=== PATIENT | female | born 1955 | race Caucasian/White ===

== ENCOUNTER 2024-08-02 14:20 | Outpatient (OUT) | payer MEDICARE, SELFPAY ==
--- NOTE | 2024-08-02 | XR_ITS ---
The [address] [address] Patient Name: RUBA PARADA MRN: [id number] date: 1955 Sex: F Assigned Patient Location: [facility] Current Patient Location: Accession/Order Number: [id number] Exam Date: 08/02/2024 14:40 Report Date: 08/05/2024 07:37 At the request of: ORI MONTANEZ Procedure: XR hip RT 2V w/ pelvis PROCEDURE: XR hip RT 2V w/ pelvis COMPARISON: None. HISTORY: PAIN OF RIGHT HIP FINDINGS: BONES:No acute fracture or dislocation. Moderate bilateral hip osteoarthritis with marginal osteophyte formation and joint space narrowing. Degenerative changes SOFT TISSUES:Negative. No visible soft tissue swelling. EFFUSION:None visible. OTHER: Vascular calcifications XR/XR hip RT 2V w/ pelvis IMPRESSION: Moderate to severe bilateral hip osteoarthritis Electronically authenticated by: SIMON TEJEDA Date: 08/05/2024 07:37
== END 2024-08-02 14:21 | disposition home or self-care (01) ==
LOC: RAD 14:26
PROVIDERS: PCP Nurse Practitioner Family; Visit Provider Nurse Practitioner Family
DX: M25.551 Pain in right hip (principal); Z91.81 History of falling; M16.0 Bilateral primary osteoarthritis of hip
CPT/HCPCS: 73502

== ENCOUNTER 2024-09-07 07:15 | Inpatient (IN) | payer MEDICARE, SELFPAY ==
[2024-09-07] VITALS (56 sets, daily range): BP systolic 128–177; BP diastolic 70–98; PULSE 50–82; TEMP 34.5–36.3; O2SAT 81–100; BMI 33.3; BMI 31.8
--- NOTE | 2024-09-07 07:19 | ECG_ITS ---
The [facility] Test Date: 2024-09-07 Pat Name: RUBA PARADA Department: Room: - Gender: Female Dock Hand: : 1955 Requested By: Sophie Omer Order Number: [id number] Reading MD: TUSHAR AYALA Measurements Intervals Isabella Rate: 51 P: 97 MI: 234 QRS: 17 QRSD: 108 T: 54 QT: 602 QTc: 577 Interpretive Statements 1100 Sinus rhythm with first degree AV block with occasional ventricular premature complexes (Unreliable analysis due to noise) 3413 Cannot rule out septal myocardial infarction, probably old 0102 ARTIFACT PRESENT 9150 abnormal ECG No previous ECG available for comparison Electronically Signed On 09-09-2024 17:49:09 EST by TUSHAR AYALA
--- NOTE | 2024-09-07 07:28 | ED_ITS ---
HPI HPI - General Adult General Chief complaint: Nausea/Vomiting/Diarrhea Stated complaint: CHEST PAIN, DIARRHEA Time Seen by Provider: 09/07/24 07:17 Source: patient Mode of arrival: ambulance History of Present Illness HPI narrative: Patient presents to ED for evaluation of chest pain and abdominal pain. Patient presented via EMS. She states that she had chest pain that woke her up this morning out of sleep. She said her chest pain is central and does radiate into her back a little bit. She is also has nausea vomiting and diarrhea. She said the diarrhea has been there at the past couple of days but the vomiting just started this morning. She has shaking chills and states that she just has not been feeling well. Patient states she is on medication but does not know which medication. She states she has not been here before. She states she lives at home with her 2 daughters. She has surgical scars on her abdomen and said it is from a tummy tuck although it looks like she has had other surgeries other than that. She was covered in stool when she arrived and she said she has been incontinent with diarrhea for the past couple of days. History is very limited because she is not answering very many questions and is also unsure of a lot of her own history. Related Data Home Medications ?Medication ?Instructions ?Recorded ?Confirmed albuterol sulfate 90 mcg/actuation 2 puff inhalation Q6H PRN 09/07/24 09/07/24 aerosol inhaler shortness of breath or wheezing amlodipine 5 mg tablet 5 mg PO DAILY 09/07/24 09/07/24 atorvastatin 40 mg tablet 40 mg PO DAILY 09/07/24 09/07/24 bupropion HCl 150 mg 24 hr tablet, 150 mg PO DAILY 09/07/24 09/07/24 extended release escitalopram oxalate 20 mg tablet 20 mg PO DAILY 09/07/24 09/07/24 fluticasone propionate 50 1 spray intranasal BID 09/07/24 09/07/24 mcg/actuation nasal spray,suspension hydrochlorothiazide 25 mg tablet 25 mg PO DAILY 09/07/24 09/07/24 metoprolol succinate 25 mg 25 mg PO DAILY 09/07/24 09/07/24 tablet,extended release 24 hr solifenacin 5 mg tablet 5 mg PO DAILY 09/07/24 09/07/24 Allergies Allergy/AdvReac Type Severity Reaction Status Date / Time No Known Drug Allergies Allergy Verified 09/07/24 07:20 Opioid HPI Opioid Management Most Recent Opioid Data: Last MAR Pain Assessment 09/07/24 08:32 Review of Systems ROS Status of ROS 10 or more systems reviewed and unremark able except as noted in history and [facility] History (Updated 09/07/24 @ 10:46 by Brittney Rashid DO) Vertigo ?R42 - Dizziness and giddiness (ICD-10) Sleep apnea ?G47.30 - Sleep apnea, unspecified (ICD-10) COPD (chronic obstructive pulmonary disease) ?J44.9 - Chronic obstructive pulmonary disease, unspecified (ICD-10) Surgical History (Updated 09/07/24 @ 09:56 by Elise Flowers) History of hysterectomy ?Z90.710 - Acquired absence of both cervix and uterus (ICD-10) History of abdominoplasty ?Z98.890 - Other specified postprocedural states (ICD-10) History of oral surgery ?Z98.890 - Other specified postprocedural states (ICD-10) Exam Narrative Exam Narrative: Time Seen: [] Vital Signs: [Per nurse's notes.] General: [Alert] shaking chills Skin: [Warm, dry, no rash.] Head: [Normocephalic, atraumatic.] Neck: [Supple, trachea midline.] Eye: [Pupils are equal, round and reactive to light, extraocular movements are intact, normal conjunctiva.] Ears, nose, mouth and throat: oral mucosa moist. Cardiovascular: Bradycardia no murmur.] Respiratory: [Lungs are clear to auscultation, breath sounds are equal.] Chest wall: [No tenderness, no deformity.] Gastrointestinal: [Soft, mild epigastric tenderness, non distended, normal bowel sounds.] MSK: 5 out of 5 muscle strength x 4 extremities no calf pain or edema Psychiatric: [Cooperative, appropriate mood & affect.] Anxious Neurological: [Alert and oriented to person, place, time, and situation, no focal neurological deficit observed.] Constitutional Vital Signs, click to edit/add: Last Vital Signs Temp 95.8 F L 09/07/24 10:17 Pulse 67 09/07/24 07:17 Resp 22 H 09/07/24 07:17 BP 136/70 09/07/24 09:53 Pulse Ox 100 09/07/24 07:17 O2 Del Method Room Air 09/07/24 07:17 Course Vital Signs Vital signs: Vital Signs Pulse Rate 67 09/07/24 07:17 Respiratory Rate 22 H 09/07/24 07:17 Pulse Oximetry 100 09/07/24 07:17 Oxygen Delivery Method Room Air 09/07/24 07:17 Temperature 95.8 F L 09/07/24 10:17 Pulse Rate 67 09/07/24 07:17 Respiratory Rate 22 H 09/07/24 07:17 Blood Pressure 136/70 09/07/24 09:53 Pulse Oximetry 100 09/07/24 07:17 Oxygen Delivery Method Room Air 09/07/24 07:17 Medical Decision Making MDM Narrative Medical decision making narrative: Patient's labs show elevated white blood cell count and elevated hemoglobin. She also has other temperature of 94 on arrival. She was placed on the bear hugger and her temperature is slowly improving. She is up to 95.8. Patient's been tachypneic and her ABG shows an alkalosis with a pH of 7.62. Patient did complain of chest pain but her troponin is negative x 1. CT angio chest abdomen pelvis does not show any evidence of PE or dissection or major obvious infection. Patient has had a lot of vomiting and diarrhea therefore this could be dehydration and gastroenteritis infection. At this time it is unclear exactly the source of infection or cause of her lab abnormalities and hypothermia. Dr. Sharif was contacted and will admit the patient to ICU for further monitoring and care. Patient and family were updated on care plan. Patient comfortable with admission. Differential Diagnosis Differential Diagnosis: Gastroenteritis, ACS, electrolyte abnormality, sepsis Lab Data Lab results reviewed: Yes I reviewed the patient's lab results Labs: Lab Results 09/07/24 09/07/24 09/07/24 Range/Units 08:00 08:13 08:39 WBC 16.4 H (4.0-11.0) 10^3/uL RBC 5.14 (4.20-5.40) 10^6/uL Hgb 16.3 H (12.0-16.0) g/dL Hct 46.4 (36.0-48.0) % MCV 90.3 (81.0-99.0) fL MCH 31.7 (26.7-34.0) pg MCHC 35.1 (29.9-35.2) g/dL RDW 12.2 (11.0-15.0) % Plt Count 260 (150-450) 10^3/uL MPV 10.1 (9.5-13.5) fL Neut % (Auto) 84.0 H (43.0-75.0) % Lymph % (Auto) 9.4 L (20.5-60.0) % Stearns % (Auto) 5.5 (1.7-12.0) % Eos % (Auto) 0.1 L (0.9-7.0) % Baso % (Auto) 0.4 (0.2-2.0) % Neut # (Auto) 13.8 H (1.4-6.5) 10^3/uL Lymph # (Auto) 1.5 (1.2-3.8) 10^3/uL Stearns # (Auto) 0.9 H (0.3-0.8) 10^3/uL Eos # (Auto) 0.0 (0.0-0.7) 10^3/uL Baso # (Auto) 0.1 (0.0-0.1) 10^3/uL Abs Immat Gran (auto) 0.10 H (0.00-0.03) 10^3/uL Imm/Tot Granulo (auto) 0.6 H (0.0-0.5) % PT 10.3 (9.0-11.6) sec INR 0.97 Puncture Site ABG pH (7.350-7.450) ABG pCO2 (35.0-45.0) mmHg ABG pO2 (80.0-100.0) mmHg ABG HCO3 (22.0-26.0) mmol/L ABG O2 Saturation % ABG Base Excess (-2.0-2.0) mmol/L Christopher Test (POSITIVE) Sodium 139 (136-145) mmol/L Potassium 3.7 (3.5-5.1) mmol/L Chloride 102 (98-107) mmol/L Carbon Dioxide 23.8 (21.0-32.0) mmol/L Anion Gap 16.9 BUN 27.0 H (7.0-18.0) mg/dL Creatinine 0.98 (0.55-1.02) mg/dL Est GFR ( Amer) >60 (>=60 mL/min/1.73m^2) Est GFR (Non-Af Amer) 56 L (>=60 mL/min/1.73m^2) BUN/Creatinine Ratio 27.6 Glucose 181 H (74-106) mg/dL Calcium 9.3 (8.5-10.1) mg/dL Total Bilirubin 1.2 H (0.2-1.0) mg/dL AST 25 (15-37) U/L ALT 31 (14-59) U/L Alkaline Phosphatase 66 (46-116) U/L Troponin I High Sens 5.8 (4.0-51.3) pg/mL Total Protein 7.3 (6.4-8.2) g/dL Albumin 4.0 (3.4-5.0) g/dL Globulin 3.3 g/dL Albumin/Globulin Ratio 1.2 / Range/Units 08:40 WBC (4.0-11.0) 10^3/uL RBC (4.20-5.40) 10^6/uL Hgb (12.0-16.0) g/dL Hct (36.0-48.0) % MCV (81.0-99.0) fL MCH (26.7-34.0) pg MCHC (29.9-35.2) g/dL RDW (11.0-15.0) % Plt Count (150-450) 10^3/uL MPV (9.5-13.5) fL Neut % (Auto) (43.0-75.0) % Lymph % (Auto) (20.5-60.0) % Stearns % (Auto) (1.7-12.0) % Eos % (Auto) (0.9-7.0) % Baso % (Auto) (0.2-2.0) % Neut # (Auto) (1.4-6.5) 10^3/uL Lymph # (Auto) (1.2-3.8) 10^3/uL Stearns # (Auto) (0.3-0.8) 10^3/uL Eos # (Auto) (0.0-0.7) 10^3/uL Baso # (Auto) (0.0-0.1) 10^3/uL Abs Immat Gran (auto) (0.00-0.03) 10^3/uL Imm/Tot Granulo (auto) (0.0-0.5) % PT (9.0-11.6) sec INR Puncture Site Right radial ABG pH 7.623 H* (7.350-7.450) ABG pCO2 16.4 L (35.0-45.0) mmHg ABG pO2 117.0 H (80.0-100.0) mmHg ABG HCO3 17.0 L (22.0-26.0) mmol/L ABG O2 Saturation 98.4 % ABG Base Excess -4.2 L (-2.0-2.0) mmol/L Christopher Test Positive (POSITIVE) Sodium (136-145) mmol/L Potassium (3.5-5.1) mmol/L Chloride (98-107) mmol/L Carbon Dioxide (21.0-32.0) mmol/L Anion Gap BUN (7.0-18.0) mg/dL Creatinine (0.55-1.02) mg/dL Est GFR ( Amer) (>=60 mL/min/1.73m^2) Est GFR (Non-Af Amer) (>=60 mL/min/1.73m^2) BUN/Creatinine Ratio Glucose (74-106) mg/dL Calcium (8.5-10.1) mg/dL Total Bilirubin (0.2-1.0) mg/dL AST (15-37) U/L ALT (14-59) U/L Alkaline Phosphatase (46-116) U/L Troponin I High Sens (4.0-51.3) pg/mL Total Protein (6.4-8.2) g/dL Albumin (3.4-5.0) g/dL Globulin g/dL Albumin/Globulin Ratio Imaging Data CT scan - abdomen: Radiologist's impression: ITS Impressions Abdomen/Pelvis CTA 09/07/24 07:32 IMPRESSION: No central pulmonary thromboembolic disease No aortic aneurysm or dissection 8 mm indeterminate lesion right renal cortex Electronically authenticated by: SIMON TEJEDA Date: 09/07/2024 10:15 Chest CTA 09/07/24 07:32 IMPRESSION: No central pulmonary thromboembolic disease No aortic aneurysm or dissection 8 mm indeterminate lesion right renal cortex Electronically authenticated by: SIMON TEJEDA Date: 09/07/2024 10:[address] 09/07/24 08:30 IMPRESSION: 1. No acute intracranial abnormality. No acute intracranial infarct visualized by this modality. (MRI is more sensitive). No acute intracranial hemorrhage 2. Periventricular white matter hypodensity, likely chronic white matter ischemic disease. Electronically authenticated by: TERESA PETERSEN Date: 09/07/2024 09:57 ECG Data Attestation: I personally reviewed and interpreted this ECG as follows: Interpretation: EKG INTERPRETATION Time: [] Rate: [] 51 Rhythm: _ [] Bradycardia ST segments: _ [] T waves: _ [] Ectopy: _ [] P wave/KS interval: _ [] QRS interval: _ [] QT interval: _ [] Comparison: _ [] Comparison EKG date: [] Performed by: [self] no obvious acute ST elevation or depression however artifact is severe due to her shaking chills Discharge Plan Discharge Chief Complaint: Nausea/Vomiting/Diarrhea Clinical Impression: Gastroenteritis, Dehydration, Chest pain, Hypothermia, Alkalosis Patient Disposition: Admitted As Inpatient Time of Disposition Decision: 10:46 Condition: Serious Prescriptions / Home Meds: No Action atorvastatin 40 mg tablet 40 mg PO DAILY amlodipine 5 mg tablet 5 mg PO DAILY hydrochlorothiazide 25 mg tablet 25 mg PO DAILY metoprolol succinate 25 mg tablet extended release 24 hr 25 mg PO DAILY albuterol sulfate 90 mcg/actuation HFA aerosol inhaler 2 puff INHALATION Q6H PRN (Reason: shortness of breath or wheezing) escitalopram oxalate 20 mg tablet 20 mg PO DAILY bupropion HCl 150 mg tablet extended release 24 hr 150 mg PO DAILY solifenacin 5 mg tablet 5 mg PO DAILY fluticasone propionate 50 mcg/actuation spray,suspension 1 spray INTRANASAL BID Print Language: Portuguese Referrals: ORI MONTANEZ [Primary Care Provider] - 1 week
--- NOTE | 2024-09-07 07:32 | CT_ITS ---
[address] [address] Patient Name: RUBA PARADA MRN: [id number] date: 1955 Sex: F Assigned Patient Location: ER Current Patient Location: Accession/Order Number: [id number] Exam Date: 09/07/2024 09:20 Report Date: 09/07/2024 10:15 At the request of: MICAH MCCURDY Procedure: CT angio abdomen pelvis EXAMINATION: CT angio chest, CT angio abdomen pelvis HISTORY: CP back pain COMPARISON: No relevant comparison available. TECHNIQUE: After obtaining the patient's consent, CT images of the chest, abdomen and pelvis were obtained with non-ionic intravenous contrast material. Axial, Coronal, and Sagittal images. Multi-planar reformatted/3-D images were created to optimize visualization of vascular anatomy. Dose reduction techniques were achieved by using automated exposure control and/or adjustment of mA and/or kV according to patient size and/or use of iterative reconstruction technique. FINDINGS: VASCULATURE: Normal postcontrast opacification of the central pulmonary arterial tree with no filling defect to suggest a pulmonary embolus LUNGS: Scattered pulmonary nodules largest measuring 8 mm along the right major fissure possibly an intrafissural lymph node axial image 40. No focal parenchymal infiltrates PLEURA: No mass, effusion, or pneumothorax. JOHN: No mass or adenopathy. MEDIASTINUM: No mass or adenopathy. CARDIAC: Prominent heart size. No pericardial effusion Coronary arteries: Moderate calcifications CHEST WALL: Ruptured right saline breast implant. Intact left breast implants AORTA/VASCULAR: No aortic aneurysm or dissection. Moderate calcific atherosclerosis CELIAC ARTERY: No flow significant stenosis occlusion or aneurysm SMA: Moderate calcification at the origin with approximately 30% narrowing. No aneurysm or occlusion RENAL ARTERIES: Single right renal artery. Single left renal artery. 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 No occlusion or flow significant stenosis. Extensive calcific atherosclerosis LIVER: No enlargement, atrophy, abnormal density, or significant focal lesion. BILIARY: Surgical clips from cholecystectomy PANCREAS: No lesion, fluid collection, ductal dilatation, or atrophy. SPLEEN: No enlargement or focal lesion. ADRENALS: No mass or enlargement. KIDNEYS: 8 mm indeterminate soft tissue cortical lesion right mid pole kidney axial image 96. No hydronephrosis or obstructing nephrolithiasis BOWEL/MESENTERY: Small hiatal hernia. Mild colonic diverticulosis. Nonobstructive bowel gas pattern. Normal appendix RETROPERITONEUM: No mass or adenopathy. ABDOMINAL WALL: No mass or hernia. BONES: No bony lesion or fracture. Moderate diffuse degenerative changes with bilateral L5-S1 foraminal stenosis OTHER: Hysterectomy. Moderate fluid distention of the urinary bladder CT/CT angio abdomen pelvis IMPRESSION: No central pulmonary thromboembolic disease No aortic aneurysm or dissection 8 mm indeterminate lesion right renal cortex Electronically authenticated by: SIMON TEJEDA Date: 09/07/2024 10:15
--- NOTE | 2024-09-07 07:32 | CT_ITS ---
[address] [address] Patient Name: RUBA PARADA MRN: [id number] date: 1955 Sex: F Assigned Patient Location: ER Current Patient Location: Accession/Order Number: [id number] Exam Date: 09/07/2024 09:20 Report Date: 09/07/2024 10:15 At the request of: MICAH MCCURDY Procedure: CT angio chest EXAMINATION: CT angio chest, CT angio abdomen pelvis HISTORY: CP back pain COMPARISON: No relevant comparison available. TECHNIQUE: After obtaining the patient's consent, CT images of the chest, abdomen and pelvis were obtained with non-ionic intravenous contrast material. Axial, Coronal, and Sagittal images. Multi-planar reformatted/3-D images were created to optimize visualization of vascular anatomy. Dose reduction techniques were achieved by using automated exposure control and/or adjustment of mA and/or kV according to patient size and/or use of iterative reconstruction technique. FINDINGS: VASCULATURE: Normal postcontrast opacification of the central pulmonary arterial tree with no filling defect to suggest a pulmonary embolus LUNGS: Scattered pulmonary nodules largest measuring 8 mm along the right major fissure possibly an intrafissural lymph node axial image 40. No focal parenchymal infiltrates PLEURA: No mass, effusion, or pneumothorax. JOHN: No mass or adenopathy. MEDIASTINUM: No mass or adenopathy. CARDIAC: Prominent heart size. No pericardial effusion Coronary arteries: Moderate calcifications CHEST WALL: Ruptured right saline breast implant. Intact left breast implants AORTA/VASCULAR: No aortic aneurysm or dissection. Moderate calcific atherosclerosis CELIAC ARTERY: No flow significant stenosis occlusion or aneurysm SMA: Moderate calcification at the origin with approximately 30% narrowing. No aneurysm or occlusion RENAL ARTERIES: Single right renal artery. Single left renal artery. 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 No occlusion or flow significant stenosis. Extensive calcific atherosclerosis LIVER: No enlargement, atrophy, abnormal density, or significant focal lesion. BILIARY: Surgical clips from cholecystectomy PANCREAS: No lesion, fluid collection, ductal dilatation, or atrophy. SPLEEN: No enlargement or focal lesion. ADRENALS: No mass or enlargement. KIDNEYS: 8 mm indeterminate soft tissue cortical lesion right mid pole kidney axial image 96. No hydronephrosis or obstructing nephrolithiasis BOWEL/MESENTERY: Small hiatal hernia. Mild colonic diverticulosis. Nonobstructive bowel gas pattern. Normal appendix RETROPERITONEUM: No mass or adenopathy. ABDOMINAL WALL: No mass or hernia. BONES: No bony lesion or fracture. Moderate diffuse degenerative changes with bilateral L5-S1 foraminal stenosis OTHER: Hysterectomy. Moderate fluid distention of the urinary bladder CT/CT angio chest IMPRESSION: No central pulmonary thromboembolic disease No aortic aneurysm or dissection 8 mm indeterminate lesion right renal cortex Electronically authenticated by: SIMON TEJEDA Date: 09/07/2024 10:15
[2024-09-07] MEDS: ONDANSETRON PF 4 MG/2 ML VIAL IV ×2 (07:39→20:22)
[2024-09-07] MEDS: 0.9 % SODIUM CHLORIDE 1,000 ML 999 ML IV (07:39)
--- OUTSIDE RECORDS SUMMARY | 2024-09-07 07:49 | XMS_ITS | CCD ---
Author Organization [facility] FIELD [employer] [facility] Medications Current Medications Medication Drug Class(es) Dates Sig (Normalized) Sig (Original) Albuterol Sulfate 90 mcg/actuation HFA aerosol inhaler (1 source) Start: 07-25-20 take 1 puff(s) by inhalation four times daily Albuterol Sulfate 90 mcg/actuation HFA aerosol inhaler Active 2 PUFF INHALATION Four times daily 6.7 July 25, 2024 11:50am amLODIPine 5 mg oral tablet (2 sources) Dihydropyridine Calcium Channel Jamey Start: 07-25-20 End: 07-25-20 take 1 tablet by mouth once daily Amlodipine 5 mg tablet Active 5 MG PO Daily July 25, 2024 11:50am atorvastatin 40 mg oral tablet (2 sources) HMG-CoA Reductase Inhibitor Start: 07-25-20 End: 07-25-20 take 1 tablet by mouth once daily Atorvastatin 40 mg tablet Active 40 MG PO Daily July 25, 2024 11:51am 24 hr buPROPion hydrochloride 150 mg extended release oral tablet (2 sources) Aminoketone Start: 07-25-20 End: 07-25-20 take 1 tablet by mouth once daily in the morning Bupropion Hcl 150 mg tablet extended release 24 hr Active 150 MG PO Every morning July 25, 2024 11:51am escitalopram 20 mg oral tablet (2 sources) Serotonin Reuptake Inhibitor Start: 07-25-20 End: 07-25-20 take 1 tablet by mouth once daily Escitalopram Oxalate 20 mg tablet Active 20 MG PO Daily July 25, 2024 11:52am fluticasone propionate 0.05 mg/actuat metered dose nasal spray (1 source) Corticosteroid Start: 07-25-20 take 1 spray(s) nasal route twice daily Fluticasone Propionate (Flonase Allergy Relief) 50 mcg/actuation spray,suspension Active 1 SPRAY INTRANASAL Twice daily July 25, 2024 12:00am administer into each nostril hydroCHLOROthiazide 25 mg oral tablet (2 sources) Thiazide Diuretic Start: 07-25-20 End: 07-25-20 take 1 tablet by mouth once daily Hydrochlorothiazide 25 mg tablet Active 25 MG PO Daily July 25, 2024 11:52am methylPREDNISolone 4 mg oral tablet (1 source) Corticosteroid Start: 08-28-19 Methylprednisolone 4 mg tablet Active 4 MG PO as directed 1 August 28, 2024 12:00am 24 hr metoprolol succinate 25 mg extended release oral tablet (2 sources) beta-Adrenergic Jamey Start: 07-25-20 End: 07-25-20 take 1 tablet by mouth once daily Metoprolol Succinate 25 mg tablet extended release 24 hr Active 25 MG PO Daily July 25, 2024 11:54am solifenacin succinate 5 mg oral tablet (2 sources) Cholinergic Muscarinic Antagonist Start: 07-25-20 End: 07-25-20 take 1 tablet by mouth once daily Solifenacin 5 mg tablet Active 5 MG PO Daily July 25, 2024 11:53am Completed/Discontinued Medications Medication Drug Class(es) Dates Sig (Normalized) Sig (Original) [id number] 200 actuat albuterol 0.09 mg/actuat metered dose inhaler (1 source) beta2-Adrenergic Agonist Start: 07-25-2024 End: 07-25-2024 take 1 puff(s) by inhalation four times daily Albuterol Sulfate 90 mcg/actuation HFA aerosol inhaler Discontinued 2 PUFF INHALATION Four times daily July 25, 2024 12:00am July 25, 2024 11:55am Problems Problem Classification Problem Date Documented Da te Episodic/Chronic Chronic obstructive pulmonary disease and bronchiectasis (2 sources) Chronic obstructive lung disease; Translations: [Chronic obstructive pulmonary disease, unspecified] 07-25-2024 Chronic Disorders of lipid metabolism (2 sources) Hypercholesterolemia; Translations: [Pure hypercholesterolemia, unspecified] 07-25-2024 Chronic Essential hypertension (2 sources) Hypertensive disorder; Translations: [Essential (primary) hypertension] 07-25-2024 Chronic Mood disorders (2 sources) Depressive disorder; Translations: [Depression] 07-25-2024 Chronic Osteoarthritis (3 sources) Primary coxarthrosis, bilateral; 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] 08-27-2024 Chronic Other diseases of bladder and urethra (1 source) Overactive bladder; Translations: [Overactive bladder] 07-25-2024 Chronic Other diseases of bladder and urethra (1 source) Overactive bladder; Translations: [Hypertonicity of bladder] 07-25-2024 Chronic Other injuries and conditions due to external causes (1 source) History of fall; Translations: [History of falling] 07-25-2024 Episodic Other injuries and conditions due to external causes (1 source) History of falling; Translations: [History of fall] 07-25-2024 Episodic Other non-traumatic joint disorders (1 source) Hip pain; Translations: [Pain in right hip] 07-25-2024 Episodic Other non-traumatic joint disorders (1 source) Pain in right hip; Translations: [Pain in joint, pelvic region and thigh] 07-25-2024 Episodic Otitis media and related conditions (2 sources) Dysfunction of eustachian tube; Translations: [Unspecified Eustachian tube disorder, unspecified ear] 07-25-2024 Episodic Spondylosis; intervertebral disc disorders; other back problems (2 sources) Disorder of right sciatic nerve; Translations: [Sciatica, right side] 08-28-2024 Episodic Vital Signs Date Time Vital Sign Value Performing Clinician Faci lity 07-25-2024 11:21050 Body height 162.56 cm [place] 07-25-2024 11:21-0500 Body mass index (BMI) [Ratio] 33.8 kg/m2 [facility] 07-25-2024 11:21-050 Body weight 89.41 kg [place] 07-25-2024 11:21-0500 Diastolic blood pressure 78 mm[Hg] [facility] 07-25-2024 11:21-0500 Heart rate 74 /min [place] 07-25-2024 11:21-0500 SaO2% (BldA) [Mass fraction] 98 % [facility] 07-25-2024 11:21-0500 Systolic blood pressure 116 mm[Hg] [facility] Encounters Encounter Date Encounter Type Care Provider Facility Start: 08-28-2024 End: 08-28-[address] [facility] Work Phone: Start: 08-28-2024 End: 08-28-2024 Patient encounter procedure [facility] Physician [facility] Work Phone: Start: 07-25-2024 End: 07-25-2024 Patient encounter procedure [facility] Physician [facility] Work Phone: Start: 07-23-2024 Non-patient / Non-visit [facility] Work Phone: Plan of Treatment Date Care Activity Detail Author XR Hip - right 2 Views [facility] Payers Date Payer Category Payer Policy ID Medicare AARP Medicare Advantage [facility] [id number] Social History Date Type Detail Facility Start: [facility] Start: 08-28-2024 Sex Female (finding) [facility] Start: 1955 Sex Assigned At Female F [facility] Evaluation note 07-25-2024 Note Date & Type Note Facility 07-25-2024 Evaluation note Diagnosis Onset Date Resolution COPD (chronic obstructive pulmonary disease) acute July 25 10:49am Depression acute July 25, 2024 10:49am Eustachian tube dysfunction acute July 25 10:49am High cholesterol acute July 25, 2024 10:49am History of recent fall acute De cember 2023 10:49am Hypertension acute July 10:49am Overactive bladder acute Decemb er 2023 10:49am Right hip pain acute July 252023 10:49am Arthritis of right hip acute Ja nuary 2024 11:58am Right sided sciatica acute Lorenzo lorena 2024 11:58am [facility] Work Phone: Chief Complaint and Reason for Visit Chief Complaint Admit Date CC Adult Risk Stratification July 9:48am Est Care July 25, 2024 1 0:49am CONSULT ORI TARIK RT HIP PIAN, WX August 28, 2024 11:58am Reason for Visit Admit Date COPD (chronic obstructive pulmonary dise ase) July 25, 2024 10:49am Depression July 25, 2024 1 0:49am Eustachian tube dysfunction July 10:49am High cholesterol July 25, 2024 1 0:49am History of recent fall July 25 10:49am Hypertension July 25, 2024 1 0:49am Overactive bladder July 25, 2024 1 0:49am Right hip pain July 25, 2024 1 0:49am Arthritis of right hip August 28, 2024 11:58am Right sided sciatica August 28, 2024 1 1:58am Advance Directives Advance Directive Response Recorded Date/ Time Advance Directives No June 1:52pm Additional Source Comments Care Teams (unrecognized sec tion and content) Team Status: Active Member Role Status Dates Ori Omer APRN SORTING SUPERVISOR-C Primary Care Provider Active Team Status: Active Member Role Status Dates Ori Omer APRN SORTING SUPERVISOR-C Primary Care Provider, Attending Provider Active Start: July 23, 2024 Team Status: Inactive Member Role Status Dates Ori Omer APRN SORTING SUPERVISOR-C Primary Care Provider, Attending Provider Active Start: July 25, 2024 End: July 25, 2024 Team Status: Inactive Member Role Status Dates Ori Omer APRN SORTING SUPERVISOR-C Primary Care Provider Active Start: August 28, 2024 End: August 28, 2024 Dickson Triana DO Attending Provider Active S tart: August 28, 2024 End: August 28, 2024 Goals (unrecognized section and content) Goals may be documented in a n alternate section FOR RECORDS PERTAINING TO PATIENTS WHO ARE OR HAVE BEEN ENROLLED IN A CHEMICAL DEPENDENCY/SUBSTANCEABUSE PROGRAM, SOME INFORMATION MAY BE OMITTED. This clinical summary was aggregated from multiple sources. Caution should be exercised in using it in the provision of clinical care. This summary normalizes information from multiple sources, and as a consequence, information in this document may materially change the coding, format and clinical context of patient data. In addition, data may be omitted in some cases. CLINICAL DECISIONS SHOULD BE BASED ON THE PRIMARY CLINICAL RECORDS. [facility] [employer] [facility]. provides no warranty or guarantee of the accuracy or completeness of information in this document.
--- NOTE | 2024-09-07 08:30 | CT_ITS ---
The [address] [address] Patient Name: RUBA PARADA MRN: [id number] date: 1955 Sex: F Assigned Patient Location: ER Current Patient Location: ER Accession/Order Number: [id number] Exam Date: 09/07/2024 09:20 Report Date: 09/07/2024 09:57 At the request of: MICAH MCCURDY Procedure: CT head/brain wo con EXAM: CT head/brain wo con HISTORY: confusion COMPARISON: None available at the time of dictation. TECHNIQUE: Axial unenhanced CT images were obtained through the brain. Individualized dose optimization technique was used for the performed procedure by employing the following: Automated exposure control, adjustment of the mA and/or kV according to patient's size, and/or the use of the iterative construction technique. Coronal and sagittal reformats were performed. FINDINGS: No acute intracranial abnormality. No acute infarct, hemorrhage or mass. No midline shift. Donato-white matter differentiation is preserved. Periventricular white matter hypodensity, likely chronic or matter ischemic disease. Ventricles and sulci are normal in size. No acute osseous abnormality. Paranasal sinuses are clear. Mastoid air cells are open. Orbits are normal. CT/CT head/brain wo con IMPRESSION: 1. No acute intracranial abnormality. No acute intracranial infarct visualized by this modality. (MRI is more sensitive). No acute intracranial hemorrhage 2. Periventricular white matter hypodensity, likely chronic white matter ischemic disease. Electronically authenticated by: TERESA PETERSEN Date: 09/07/2024 09:57
[2024-09-07] MEDS: FENTANYL CITRATE/PF 100 MCG/2 ML VIAL 50 MCG IV (08:32)
[2024-09-07 08:35] LABS: Anion Gap 16.9
[2024-09-07 08:37] LABS: Alanine Aminotransferase 31 U/L (14-59); Albumin Globulin Ratio 1.2; Alkaline Phosphatase 66 U/L (46-116); Aspartate Amino Transferase 25 U/L (15-37); BUN Creatinine Ratio 27.6; Bilirubin Total 1.2 mg/dL (0.2-1.0); Calcium 9.3 mg/dL (8.5-10.1); Carbon Dioxide 23.8 mmol/L (21.0-32.0); Chloride 102 mmol/L (98-107); Estimated GFR (African America >60 (>=60 mL/min/1.73m^2); Estimated GFR (Non-African Ame 56 (>=60 mL/min/1.73m^2); Globulin 3.3 g/dL; Glucose 181 mg/dL (74-106); Potassium 3.7 mmol/L (3.5-5.1); Sodium 139 mmol/L (136-145); Total Protein 7.3 g/dL (6.4-8.2); Troponin I High Sensitivity 5.8 pg/mL (4.0-51.3)
[2024-09-07 08:44] LABS: INR 0.97; Prothrombin Time 10.3 sec (9.0-11.6)
[2024-09-07 08:45] LABS: Basophils Absolute Auto 0.1 10^3/uL (0.0-0.1); Basophils Percent Auto 0.4 % (0.2-2.0); Eosinophils Percent Auto 0.1 % (0.9-7.0); Hematocrit 46.4 % (36.0-48.0); Hemoglobin 16.3 g/dL (12.0-16.0); Immature Granulocytes Pct Auto 0.6 % (0.0-0.5); Lymphocytes Absolute Auto 1.5 10^3/uL (1.2-3.8); Lymphocytes Percent Auto 9.4 % (20.5-60.0); Mean Corpuscular HGB Conc 35.1 g/dL (29.9-35.2); Mean Corpuscular Hemoglobin 31.7 pg (26.7-34.0); Mean Corpuscular Volume 90.3 fL (81.0-99.0); Mean Platelet Volume 10.1 fL (9.5-13.5); Monocytes Absolute Auto 0.9 10^3/uL (0.3-0.8); Monocytes Percent Auto 5.5 % (1.7-12.0); Neutrophils Absolute Auto 13.8 10^3/uL (1.4-6.5); Platelet Count 260 10^3/uL (150-450); Red Blood Count 5.14 10^6/uL (4.20-5.40); Red Cell Distribution Width 12.2 % (11.0-15.0); White Blood Count 16.4 10^3/uL (4.0-11.0)
[2024-09-07 08:52] LABS: ABG PCO2 16.4 mmHg (35.0-45.0); Base Excess ABG -4.2 mmol/L (-2.0-2.0); Oxygen Saturation ABG 98.4 %
[2024-09-07 08:53] LABS: Allen Test POSITIVE (POSITIVE); O2 Mode ROOM AIR; Puncture Site RIGHT RADIAL
[2024-09-07 08:54] LABS: pH ABG 7.623 (7.350-7.450)
[2024-09-07 10:51] LABS: Influenza Virus A Antigen Negative; Influenza Virus B Antigen Negative; Internal Control Within Normal Limits; SARS-CoV-2 Ag NEGATIVE (NEGATIVE)
[2024-09-07 11:00] LABS: Lactate/Lactic Acid 3.3 mmol/L (0.4-2.0)
[2024-09-07] MEDS: KETOROLAC TROMETHAMINE 30 MG/ML VIAL 15 MG IVP (11:32)
[2024-09-07] MEDS: CIPROFLOXACIN IN 5 % DEXTROSE 400 MG/200 ML PREMIX 200 MG IV (11:32)
--- OUTSIDE RECORDS SUMMARY | 2024-09-07 12:15 | XMS_ITS | CCD ---
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 [facility] Medications Current Medications Medication Drug Class(es) [...] Drug Class(es) Dates Sig (Normalized) Sig (Original) [id number] 200 actuat albuterol 0.09 mg/actuat metered dose [...] lity 07-25-2024 11:21050 Body height 162.56 cm [facility] 07-25-2024 11:21-0500 Body mass index (BMI) [Ratio] 33.8 kg/m2 [facility] 07-25-2024 11:21-050 Body weight 89.41 kg [facility] 07-25-2024 11:21-0500 Diastolic blood pressure 78 mm[Hg] [facility] 07-25-2024 11:21-0500 Heart rate 74 /min [facility] 07-25-2024 11:21-0500 SaO2% (BldA) [Mass fraction] 98 % [facility] 07-25-2024 11:21-0500 Systolic blood pressure 116 mm[Hg] [facility] Encounters Encounter Date Encounter Type Care Provider Facility Start: 08-28-2024 End: 08-28-2024 ambulatory [facility] Work Phone: Start: 08-28-2024 End: 08-28-2024 [facility] Work Phone: Start: 07-25-2024 End: 07-25-2024 [facility] Work Phone: Start: 07-23-2024 Non-patient / Non-visit [facility] Work Phone: Plan of Treatment Date Care Activity Detail Author XR Hip - right 2 Views [facility] Payers Date Payer Category Payer Policy ID Medicare AARP Medicare Advantage [facility] [id number] Social History Date Type Detail Facility Start: 07-25-2024 [facility] Start: 08-28-2024 Sex Female (finding) [facility] Start: 1955 Sex Assigned At Female F [facility] Evaluation note 07-25-2024 Note Date & Type [...] sided sciatica acute Lorenzo lorena 2024 11:58am [facility] Work Phone: Chief Complaint and Reason for [...] Member Role Status Dates Ori Omer APRN SUPERVISOR SAWING AND ASSEMBLY-C Primary Care Provider Active Team Status: Active Member Role Status Dates Ori Omer APRN SUPERVISOR SAWING AND ASSEMBLY-C Primary Care Provider, Attending Provider Active Start: July 23, 2024 Team Status: Inactive Member Role Status Dates Ori Omer APRN SUPERVISOR SAWING AND ASSEMBLY-C Primary Care Provider, Attending Provider Active Start: July 25, 2024 End: July 25, 2024 Team Status: Inactive Member Role Status Dates Ori Omer APRN SUPERVISOR SAWING AND ASSEMBLY-C Primary Care Provider Active Start: August 28, [...] BE BASED ON THE PRIMARY CLINICAL RECORDS. [email or web address] [facility]. provides no warranty or guarantee of the accuracy or completeness of information in this document.
--- NOTE | 2024-09-07 12:16 | P.HP_ITS ---
HPI H&P: HPI History of Present Illness Chief complaint: CHEST PAIN, DIARRHEA, HYPOTHERMIA, N/V/D Narrative: Patient seen and evaluated emergency with increasing chest pain and hyperemesis. When I saw patient in the emergency room, her daughters were present, they gave most of the history, patient very uncomfortable in the bed, continues to describe chest pain, reviewed CTA of chest and abdomen, patient not hypoxic, but significant hypothermia and respiratory alkalosis and dehydration findings, patient admitted to the ICU Opioid HPI Opioid Management Most Recent Pain and Opioid Data: Last Pain Assessment 09/07/24 14:00 Last MAR Pain Assessment 09/07/24 11:32 Last ORT Total Score 4 09/07/24 12:23 09/07/24 Last ORT Risk Category Moderate Risk 09/07/24 12:23 09/07/24 Review of Systems ROS Status of ROS 10 or more systems reviewed and unremark able except as noted in history and below PFS PFS Medical History (Updated 09/07/24 @ 10:46 by Brittney Rashid DO) Vertigo ?R42 - Dizziness and giddiness (ICD-10) Sleep apnea ?G47.30 - Sleep apnea, unspecified (ICD-10) COPD (chronic obstructive pulmonary disease) ?J44.9 - Chronic obstructive pulmonary disease, unspecified (ICD-10) Surgical History (Updated 09/07/24 @ 09:56 by Elise Flowers) History of hysterectomy ?Z90.710 - Acquired absence of both cervix and uterus (ICD-10) History of abdominoplasty ?Z98.890 - Other specified postprocedural states (ICD-10) History of oral surgery ?Z98.890 - Other specified postprocedural states (ICD-10) Social History Highest level of school completed/degree received: 9th grade Little interest or pleasure in doing things: not at all Feeling down, depressed, or hopeless: several days Meds Home Medications and Allergies Home Medications ?Medication ?Instructions ?Recorded ?Confirmed ?Type albuterol sulfate 90 mcg/actuation 2 puff inhalation Q6H PRN 09/07/24 09/07/24 History aerosol inhaler shortness of breath or wheezing amlodipine 5 mg tablet 5 mg PO DAILY 09/07/24 09/07/24 History atorvastatin 40 mg tablet 40 mg PO DAILY 09/07/24 09/07/24 History bupropion HCl 150 mg 24 hr tablet, 150 mg PO DAILY 09/07/24 09/07/24 History extended release escitalopram oxalate 20 mg tablet 20 mg PO DAILY 09/07/24 09/07/24 History fluticasone propionate 50 1 spray intranasal BID 09/07/24 09/07/24 History mcg/actuation nasal spray,suspension hydrochlorothiazide 25 mg tablet 25 mg PO DAILY 09/07/24 09/07/24 History metoprolol succinate 25 mg 25 mg PO DAILY 09/07/24 09/07/24 History tablet,extended release 24 hr solifenacin 5 mg tablet 5 mg PO DAILY 09/07/24 09/07/24 History Allergies Allergy/AdvReac Type Severity Reaction Status Date / Time No Known Drug Allergies Allergy Verified 09/07/24 07:20 Exam Constitutional Vital Signs, click to edit/add: Last Vital Signs Temp 97.3 F L 09/07/24 11:39 Pulse 52 L 09/07/24 11:39 Resp 22 H 09/07/24 07:17 BP 128/70 09/07/24 11:39 Pulse Ox 100 09/07/24 11:39 O2 Del Method Room Air 09/07/24 07:17 Documenting provider has reviewed patient's vital signs: yes Common normals: apparent distress (Moderate distress) Chest Common normals: inspection of chest normal and palpation of chest normal Respiratory Common normals: normal respiratory effort, no retractions and no use of accessory muscles Cardio Common normals: regular rate and regular rhythm GI Common normals: soft to palpation; negative for Normal to inspection, nondistended, normoactive bowel sounds present (Obese) and tender (Positive rebound tenderness, pain in L L quadrant with palpation of RLQ) Results Labs Labs: Short CBC 09/07/24 Range/Units 08:39 WBC 16.4 H (4.0-11.0) 10^3/uL Hgb 16.3 H (12.0-16.0) g/dL Hct 46.4 (36.0-48.0) % Plt Count 260 (150-450) 10^3/uL BMP 09/07/24 08:00 Sodium 139 Potassium 3.7 Chloride 102 Carbon Dioxide 23.8 BUN 27.0 H Creatinine 0.98 Glucose 181 H Calcium 9.3 Liver Function 09/07/24 Range/Units 08:00 Total Bilirubin 1.2 H (0.2-1.0) mg/dL AST 25 (15-37) U/L ALT 31 (14-59) U/L Alkaline Phosphatase 66 (46-116) U/L Albumin 4.0 (3.4-5.0) g/dL ABG ABG results: 09/07/24 08:40 ABG pH 7.623 H* ABG pCO2 16.4 L ABG pO2 117.0 H ABG HCO3 17.0 L ABG O2 Saturation 98.4 ABG Base Excess -4.2 L Assessment and Plan Assessment and Plan (1) Alkalosis: (2) Hypothermia: (3) Chest pain: (4) Dehydration: (5) Gastroenteritis: Plan Admission findings: Hypothermia with a temperature of 94.1, bradycardia, respiratory distress, uncontrolled hypertension, leukocytosis with white blood cell count over 16, elevated pH with a pH of over 7.6, pCO2 less than 20 and lactic acidosis, likely secondary to acute diverticulitis without abscess as patient has pain in left lower quadrant as well as pain in left lower quadrant with palpation of right resulting in severe sepsis Severe sepsis secondary to left lower quadrant pain likely diverticulitis without abscess noted on CT scan, checking stool studies, starting patient on broad-spectrum antibiotics, lipase negative Hyperemesis-Zofran and Reglan for nausea control Hyperbilirubinemia-likely secondary to the above, need to watch liver function test closely, will repeat in edy. Chest pain-EKG normal, troponin so far normal, will continue to track and trend Respiratory alkalosis likely secondary to hyperventilation-no other etiology for him based on her past medical history, continue to follow venous pH is COPD without acute exacerbation-continue with aerosol treatments Dehydration with elevated BUN-IV fluids, patient given fluid resuscitation in ER, repeated 1 more bolus up in the ICU Hyperglycemia without a history of [id number] before meals and at bedtime Hypertension-uncontrolled on admission, continue to follow Bradycardia-will maintain current medications Depression-continue with home medications Hypercholesterolemia-will hold off on medication due to hyperemesis Sleep apnea-we have asked the family to bring in her CPAP machine, patient does become hypoxic at sleeping but has no hypoxia when awake Admission status: Patient with severe sepsis, no septic shock, significant hypothermia with bradycardia and leukocytosis, medically necessary treatment will span 2 midnights. Inpatient status
[2024-09-07] MEDS: HYOSCYAMINE SULFATE 0.125 MG TAB.SUBL 0.25 MG SL ×3 (12:43→22:32)
[2024-09-07] MEDS: PANTOPRAZOLE SODIUM 40 MG VIAL IV ×2 (12:44→22:33)
[2024-09-07] MEDS: LACTATED RINGER'S SOLUTION 1,000 ML 1000 ML IV (12:44)
[2024-09-07] MEDS: METRONIDAZOLE/SODIUM CHLORIDE 500 MG/100 ML PREMIX 100 MG IV (13:28)
[2024-09-07] MEDS: METOCLOPRAMIDE HCL 10 MG/2 ML VIAL 5 MG IVP ×2 (13:29→20:14)
[2024-09-07 13:37] LABS: PCO2 VBG 22.1 mmHg (40.0-52.0); pH VBG 7.565 (7.330-7.430)
--- NOTE | 2024-09-07 13:43 | RESP.RT ---
Patient deaturating during sleep. Wears CPAP at home. Placed on 2lpm [place]
[2024-09-07] MEDS: LACTATED RINGER'S SOLUTION 1,000 ML 100 ML IV ×2 (13:46→23:56)
[2024-09-07 14:12] LABS: Magnesium 1.9 mg/dL (1.8-2.4); Thyroid Stimulating Hormone 2.449 uIU/mL (0.358-3.740)
[2024-09-07 14:35] LABS: Troponin I High Sensitivity 8.3 pg/mL (4.0-51.3)
[2024-09-07 14:59] LABS: Lactate/Lactic Acid 3.3 mmol/L (0.4-2.0)
[2024-09-07 16:01] LABS: Internal Control Within Normal Limits; Occult Blood Positive
[2024-09-07 16:17] LABS: Lactate/Lactic Acid 2.1 mmol/L (0.4-2.0)
[2024-09-07 16:26] LABS: Glucometer 109 mg/dL (74-106)
[2024-09-07 16:51] LABS: C. Difficile PCR NEGATIVE
[2024-09-07] MEDS: SUCRALFATE 1 GM TABLET PO ×2 (16:54→22:33)
[2024-09-07] MEDS: PIPERACILLIN SODIUM/TAZOBACTAM 3.375 GM in 0.9 % SODIUM CHLORIDE 50 ML IV (20:14)
[2024-09-07 22:38] LABS: Glucometer 118 mg/dL (74-106)
[2024-09-08] VITALS (30 sets, daily range): BP systolic 100–128; BP diastolic 54–85; PULSE 48–97; TEMP 36.7–37.3; O2SAT 95–99
[2024-09-08] MEDS: METOCLOPRAMIDE HCL 10 MG/2 ML VIAL 5 MG IVP ×2 (01:26→09:02)
[2024-09-08] MEDS: PIPERACILLIN SODIUM/TAZOBACTAM 3.375 GM in 0.9 % SODIUM CHLORIDE 50 ML IV ×3 (04:43→20:38)
[2024-09-08] MEDS: PANTOPRAZOLE SODIUM 40 MG VIAL IV ×2 (04:49→16:58)
[2024-09-08 05:55] LABS: PCO2 VBG 38.6 mmHg (40.0-52.0); pH VBG 7.419 (7.330-7.430)
[2024-09-08 06:10] LABS: Alanine Aminotransferase 28 U/L (14-59); Albumin Level 3.4 g/dL (3.4-5.0); Alkaline Phosphatase 63 U/L (46-116); Anion Gap 15.3; Aspartate Amino Transferase 42 U/L (15-37); BUN Creatinine Ratio 19.6; Bilirubin Total 1.2 mg/dL (0.2-1.0); Calcium 8.6 mg/dL (8.5-10.1); Carbon Dioxide 24.3 mmol/L (21.0-32.0); Chloride 98 mmol/L (98-107); Estimated GFR (African America >60 (>=60 mL/min/1.73m^2); Estimated GFR (Non-African Ame 57 (>=60 mL/min/1.73m^2); Globulin 3.5 g/dL; Glucose 109 mg/dL (74-106); Potassium 4.6 mmol/L (3.5-5.1); Sodium 133 mmol/L (136-145); Total Protein 6.9 g/dL (6.4-8.2)
[2024-09-08 07:06] LABS: Basophils Percent Auto 0.1 % (0.2-2.0); Eosinophils Absolute Auto 0.1 10^3/uL (0.0-0.7); Eosinophils Percent Auto 0.4 % (0.9-7.0); Hematocrit 43.3 % (36.0-48.0); Hemoglobin 15.1 g/dL (12.0-16.0); Immature Granulocytes Abs Auto 0.07 10^3/uL (0.00-0.03); Immature Granulocytes Pct Auto 0.5 % (0.0-0.5); Lymphocytes Absolute Auto 2.1 10^3/uL (1.2-3.8); Lymphocytes Percent Auto 15.4 % (20.5-60.0); Mean Corpuscular HGB Conc 34.9 g/dL (29.9-35.2); Mean Corpuscular Hemoglobin 31.6 pg (26.7-34.0); Mean Corpuscular Volume 90.6 fL (81.0-99.0); Mean Platelet Volume 10.1 fL (9.5-13.5); Monocytes Absolute Auto 1.2 10^3/uL (0.3-0.8); Monocytes Percent Auto 9.2 % (1.7-12.0); Neutrophils Percent Auto 74.4 % (43.0-75.0); Platelet Count 264 10^3/uL (150-450); Red Blood Count 4.78 10^6/uL (4.20-5.40); Red Cell Distribution Width 12.7 % (11.0-15.0); White Blood Count 13.4 10^3/uL (4.0-11.0)
[2024-09-08 08:52] LABS: Bilirubin Urine NEGATIVE (NEGATIVE); Blood Urine SMALL (NEGATIVE); Clarity Urine CLEAR (CLEAR); Color Urine LT. YELLOW (YELLOW); Glucose Urine UA NEGATIVE (NEGATIVE); Ketones Urine 15 mg/dL (NEGATIVE); Leukocyte Esterase Urine NEGATIVE (NEGATIVE); Nitrite Urine POSITIVE (NEGATIVE); Protein Urine 30 mg/dL (NEG/TRACE); Urobilinogen Urine 0.2 EU/dL (0.2-1.0); pH Urine 7.5 (5.0-9.0)
[2024-09-08] MEDS: ESCITALOPRAM 10 MG TABLET 20 MG PO (09:02)
[2024-09-08] MEDS: 0.9 % SODIUM CHLORIDE 1,000 ML 75 ML IV ×2 (09:03→21:38)
[2024-09-08] MEDS: AMLODIPINE BESYLATE 5 MG TABLET PO (09:03)
[2024-09-08] MEDS: SOLIFENACIN SUCCINATE 5 MG TABLET PO (09:03)
[2024-09-08] MEDS: SUCRALFATE 1 GM TABLET PO ×4 (09:03→21:37)
[2024-09-08] MEDS: HYOSCYAMINE SULFATE 0.125 MG TAB.SUBL 0.25 MG SL ×4 (09:03→21:37)
[2024-09-08] MEDS: BUPROPION HCL 150 MG XL TABLET 24H PO (09:03)
[2024-09-08] MEDS: METOPROLOL SUCCINATE 25 MG TAB.ER.24H PO (09:03)
[2024-09-08] MEDS: FLUTICASONE PROPIONATE 50 MCG NASAL SPRAY 1 SPRAY NS (09:04)
[2024-09-08 09:17] LABS: Mucus Urine NONE SEEN (NONE SEEN); RBC Urine 0-2 #/HPF (0-2)
[2024-09-08 09:18] LABS: Bacteria Urine MODERATE #/HPF (NONE SEEN); Squamous Epithelial Cell Urine FEW #/LPF (NONE/RARE)
[2024-09-08 09:19] LABS: Urine Culture Indicated ALREADY ORDERED
--- NOTE | 2024-09-08 10:26 | P.PN_ITS ---
Progress Note: Subjective Subjective Interval history: Patient doing much better today, less abdominal pain Exam Constitutional Vital Signs, click to edit/add: Last Vital Signs Temp 99.1 F 09/08/24 08:00 Pulse 59 L 09/08/24 10:00 Resp 20 09/08/24 08:00 BP 100/85 09/08/24 08:00 Pulse Ox 95 09/08/24 08:00 O2 Del Method Room Air, Home BIPAP / CPAP 09/07/24 19:20 O2 Flow Rate 2 09/07/24 13:42 Documenting provider has reviewed patient's vital signs: yes Common normals: no apparent distress Chest Common normals: inspection of chest normal Respiratory Common normals: normal respiratory effort and no retractions Cardio Common normals: regular rate and regular rhythm GI Common normals: Normal to inspection, nondistended, normoactive bowel sounds present and soft to palpation; tender (Mild diffuse tenderness but much improved from previous day) Extremity Common normals: normal to inspection Progress Note: Objective Labs Labs: Short CBC 09/08/24 Range/Units 07:02 WBC 13.4 H (4.0-11.0) 10^3/uL Hgb 15.1 (12.0-16.0) g/dL Hct 43.3 (36.0-48.0) % Plt Count 264 (150-450) 10^3/uL BMP 09/08/24 05:40 Sodium 133 L Potassium 4.6 Chloride 98 Carbon Dioxide 24.3 BUN 19.0 H Creatinine 0.97 Glucose 109 H Calcium 8.6 Liver Function 09/08/24 Range/Units 05:40 Total Bilirubin 1.2 H (0.2-1.0) mg/dL AST 42 H (15-37) U/L ALT 28 (14-59) U/L Alkaline Phosphatase 63 (46-116) U/L Albumin 3.4 (3.4-5.0) g/dL Urine 09/07/24 Range/Units 14:00 Urine Color Lt. yellow (YELLOW) Urine Clarity Clear (CLEAR) Urine pH 7.5 (5.0-9.0) Ur Specific [place] 1.020 (1.005-1.025) Urine Protein 30 A (NEG/TRACE) mg/dL Urine Glucose (UA) Negative (NEGATIVE) mg/dL Progress Note: A&P Assessment and Plan (1) Alkalosis: (2) Hypothermia: (3) Chest pain: (4) Dehydration: (5) Gastroenteritis: Plan Admission findings: Hypothermia with a temperature of 94.1, bradycardia, respiratory distress, uncontrolled hypertension, leukocytosis with white blood cell count over 16, elevated pH with a pH of over 7.6, pCO2 less than 20 and lactic acidosis, likely secondary to acute diverticulitis without abscess as patient has pain in left lower quadrant as well as pain in left lower quadrant with palpation of right resulting in severe sepsis Severe sepsis secondary to left lower quadrant pain likely diverticulitis without abscess noted on CT scan,-urinalysis is also positive, overall patient is improving with improvement in white blood cell count we will maintain current treatment plan TIA-just resulted-continue with current treatment plan Hyperemesis-Zofran and Reglan for nausea control-much improved Hyperbilirubinemia-likely passive congestion from sepsis as outlined above Chest pain-troponins were negative, chest pain resolved with Carafate Respiratory alkalosis likely secondary to hyperventilation-venous pH is much improved back to baseline COPD without acute exacerbation-continue with aerosol treatments Dehydration with hyponatremia with elevated BUN--continue to follow Acute blood loss anemia with decreased hemoglobin and positive occult blood-IV Protonix, continue to monitor Hyperglycemia without a history of diabetes--improved Hypertension-uncontrolled on admission, continue to follow Bradycardia-will maintain current medications Depression-continue with home medications Hypercholesterolemia-will hold off on medication due to hyperemesis Sleep apnea-we have asked the family to bring in her CPAP machine, patient does become hypoxic at sleeping but has no hypoxia when awake Admission status: Patient with severe sepsis, no septic shock, significant hypothermia with bradycardia and leukocytosis, medically necessary treatment will span 2 midnights. Inpatient status ? Urinary Catheter Management Urinary Catheter Management Straight: Cath placed during this visit: yes Urethral indwelling: No Insertion date: 09/07/24 Insertion time: 17:34
[2024-09-09] VITALS (14 sets, daily range): BP systolic 109–151; BP diastolic 57–90; PULSE 45–64; TEMP 36.7–37.1; O2SAT 96
[2024-09-09 05:17] LABS: Basophils Absolute Auto 0.1 10^3/uL (0.0-0.1); Basophils Percent Auto 0.4 % (0.2-2.0); Eosinophils Absolute Auto 0.1 10^3/uL (0.0-0.7); Eosinophils Percent Auto 1.1 % (0.9-7.0); Hematocrit 40.9 % (36.0-48.0); Hemoglobin 14.3 g/dL (12.0-16.0); Immature Granulocytes Abs Auto 0.04 10^3/uL (0.00-0.03); Immature Granulocytes Pct Auto 0.3 % (0.0-0.5); Lymphocytes Absolute Auto 2.5 10^3/uL (1.2-3.8); Lymphocytes Percent Auto 20.9 % (20.5-60.0); Mean Corpuscular Hemoglobin 32.3 pg (26.7-34.0); Mean Corpuscular Volume 92.3 fL (81.0-99.0); Mean Platelet Volume 10.4 fL (9.5-13.5); Monocytes Absolute Auto 1.1 10^3/uL (0.3-0.8); Monocytes Percent Auto 9.4 % (1.7-12.0); Neutrophils Percent Auto 67.9 % (43.0-75.0); Platelet Count 220 10^3/uL (150-450); Red Blood Count 4.43 10^6/uL (4.20-5.40); White Blood Count 11.7 10^3/uL (4.0-11.0)
[2024-09-09 05:34] LABS: Alanine Aminotransferase 27 U/L (14-59); Albumin Globulin Ratio 1.1; Albumin Level 3.2 g/dL (3.4-5.0); Alkaline Phosphatase 49 U/L (46-116); Anion Gap 11.6; Aspartate Amino Transferase 35 U/L (15-37); BUN Creatinine Ratio 17.5; Bilirubin Total 0.9 mg/dL (0.2-1.0); Calcium 8.1 mg/dL (8.5-10.1); Carbon Dioxide 25.6 mmol/L (21.0-32.0); Chloride 108 mmol/L (98-107); Estimated GFR (African America >60 (>=60 mL/min/1.73m^2); Estimated GFR (Non-African Ame 57 (>=60 mL/min/1.73m^2); Globulin 2.9 g/dL; Glucose 94 mg/dL (74-106); Potassium 3.2 mmol/L (3.5-5.1); Sodium 142 mmol/L (136-145); Total Protein 6.1 g/dL (6.4-8.2)
[2024-09-09] MEDS: PIPERACILLIN SODIUM/TAZOBACTAM 3.375 GM in 0.9 % SODIUM CHLORIDE 50 ML IV ×2 (06:12→12:34)
[2024-09-09] MEDS: PANTOPRAZOLE SODIUM 40 MG VIAL IV (06:12)
[2024-09-09] MEDS: HYOSCYAMINE SULFATE 0.125 MG TAB.SUBL 0.25 MG SL ×2 (06:14→12:33)
[2024-09-09] MEDS: SUCRALFATE 1 GM TABLET PO ×2 (06:14→12:33)
--- NOTE | 2024-09-09 08:32 | ECG_ITS ---
[facility] Test Date: 2024-09-09 Pat Name: RUBA PARADA Department: Room: [facility] Gender: Female Recreational Counselor: : 1955 Requested By: [id number] Order Number: [id number] Reading MD: TUSHAR AYALA Measurements Intervals [place] Rate: 52 P: 51 AK: 200 QRS: 1 QRSD: 90 T: 52 QT: 486 QTc: 466 Interpretive Statements 1100 Sinus rhythm 1570 with occasional ventricular premature complexes 8102 Low QRS voltage in chest leads 8304 Long QTc interval 9150 abnormal ECG Compared to ECG 09/07/2024 07:17:47 Ventricular premature complex(es) now present Low QRS voltage now present First degree AV block no longer present Myocardial infarct finding no longer present Electronically Signed On 09-09-2024 17:56:28 EST by TUSHAR AYALA
--- NOTE | 2024-09-09 09:00 | CM.NOTE ---
Rounds made with Dr. John, pt will discharge to home today and f/u with PCP in one week.
[2024-09-09] MEDS: BUPROPION HCL 150 MG XL TABLET 24H PO (09:22)
[2024-09-09] MEDS: SOLIFENACIN SUCCINATE 5 MG TABLET PO (09:22)
[2024-09-09] MEDS: AMLODIPINE BESYLATE 5 MG TABLET PO (09:22)
[2024-09-09] MEDS: ESCITALOPRAM 10 MG TABLET 20 MG PO (09:22)
[2024-09-09] MEDS: POTASSIUM CHLORIDE 10 MEQ ER TABLET 40 MEQ PO (09:22)
[2024-09-09] MEDS: OMEPRAZOLE 40 MG CAPSULE.DR PO ×2 (09:22→09:24)
[2024-09-09] MEDS: FLUTICASONE PROPIONATE 50 MCG NASAL SPRAY 1 SPRAY NS (09:23)
--- NOTE | 2024-09-09 11:24 | P.DS_ITS ---
DS: Providers Provider Date of admission: 09/07/24 12:09 Primary care physician: ORI OMER Admitting clinician: Deni Sharif Attending physician on admission: Deni Sharif Consults: 09/07/24 12:01 Occupational Therapy Eval and Treat Routine Reason for consultation: Only if needed for Rehab Has provider been notified: No Physical Therapy Eval and Treat Routine Reason for consultation: Eval and Treat Has provider been notified: No Attending physician on discharge: Shaikh Dora Discharging clinician: Shaikh Dora Anticipated date of discharge: 09/09/24 DS: Diagnosis Discharge Diagnosis (1) Mixed acid base balance disorder: Assessment and plan: Primary resp alkalosis and metabolic alkalosis. Hyperventilation likely sec to acute anxiety contributing to resp alkalosis. Metabolic alkalosis likely sec to dehydration/volume depletion Patient is doing well today. Had watery diarrhea earlier today but tolerating PO diet. Maintaining temperature. Denies nausea/vomiting. (2) Hypothermia: Assessment and plan: Resolved. Likely due to severe dehydration +/- due to underlying infection TSH normal Qualifiers: Encounter type: subsequent encounter Qualified Code(s): T68.XXXD - Hypothermia, subsequent encounter (3) Chest pain: Assessment and plan: Resolved. Could be due to anxiety or due to vomiting. Trop x 3 negative No acute finding on CTA. Will benefit from outpatient work up for possible ISHD -defer to PCP Qualifiers: Chest pain type: unspecified Qualified Code(s): R07.9 - Chest pain, unspecified (4) Dehydration: Assessment and plan: Resolved. Still has watery diarrhea but no nausea/vomiting and able to tolerate PO diet. Discussed importance of oral hydration to the patient and instructed to return to ED if unable to tolerate PO diet. (5) Gastroenteritis: Assessment and plan: Negative C diff. Presumed bacterial due to the severity of illness and will empirically treat with oral Ciprofloxaxin and Flagyl for 7 days. (6) Lactic acidosis: Assessment and plan: Lactate 3.3 on arrival, improved with IV hydration (7) Renal cyst: Assessment and plan: 8 mm left renal cortex lesion - indeterminate. Incidental finding. Will need outpatient f/u for it. (8) Bradycardia: Assessment and plan: Hold Toprol as outpatient. No signs of heart block on EKG. TSH is normal. (9) HTN (hypertension): Assessment and plan: Patient can resume her oral medication as outpatient. Will hold Toprol for bradycardia Qualifiers: Hypertension type: primary hypertension Qualified Code(s): I10 - Essential (primary) hypertension (10) HLD (hyperlipidemia): Assessment and plan: Continue with Lipitor Qualifiers: Hyperlipidemia type: unspecified Qualified Code(s): E78.5 - Hyperlipidemia, unspecified DS: Summary Hospital Course Hospital Course: Patient presented to ED via EMS for evaluation of chest pain and abdominal pain. Patient reported that she woke up with chest on day of admission. She also reported intractable nausea, vomiting and watery diarrhea for past couple of days. She also had shaking chills and overall felt weak and tired. She was covered in stool when she arrived and she said she had been incontinent with diarrhea for the past couple of days. Patient's work up in ED revealed severe dehydration/combined resp/metabolic alkalosis, lactic acidosis due to gastro enteritis. She was also hypothermic on arrival with temp as low as 94. She was also found to have sinus bradycardia. Her TSH was normal. Her work up included CTH, CTA chest and CT abd/pelvis with no sig finding on imaging. He was found to have incidental finding of 8 mm renal cortex lesion in the left kidney which will need outpatient follow-up. She tested negative for C diff. Patient was treated with IVF and empirical IV abx - and received IV zosyn. Patient clinically improved during the course of admission and her nausea and vomiting resolved. She is still having watery diarrhea but it has improved and quantity and frequency. Her chest pain also resolved and it feels more likely that it was because of nausea and vomiting and not of cardiac etiology. However, it is not unreasonable to pursue workup for ischemic heart disease as outpatient given her risk factors. I will discontinue her Toprol because of bradycardia noted during admission. Patient was educated on importance of adequate oral hydration. She was also instructed to return to ER if she is unable to tolerate p.o. diet and keep up with fluid loss from diarrhea. Patient is medically stable for discharge. Need to follow-up with PCP in 1 week Status at Discharge Functional status at discharge: independent ambulation Overall status at discharge: patient is back to baseline Time Spent with Patient Time attestation: Total time spent providing and/or coordinating discharge services: Time spent: greater than 30 minutes Exam Constitutional Vital Signs, click to edit/add: Last Vital Signs Temp 98.6 F 09/09/24 08:00 Pulse 54 L 09/09/24 10:00 Resp 20 09/09/24 08:00 BP 151/80 H 09/09/24 08:00 Pulse Ox 96 09/09/24 08:00 O2 Del Method Room Air 09/08/24 19:34 O2 Flow Rate 2 09/08/24 17:00 Documenting provider has reviewed patient's vital signs: yes Common normals: no apparent distress and oriented x3 General appearance: cooperative Respiratory Common normals: normal respiratory effort and clear to auscultation bilaterally Effort & inspection: able to speak in complete sentences Auscultation: clear to auscultation bilaterally Cardio Common normals: regular rate, S1 normal heart sound and S2 normal heart sound Rate: regular rate Heart sounds: S1 normal and S2 normal GI Common normals: Normal to inspection, nondistended, normoactive bowel sounds present, soft to palpation, non-tender and no hepatosplenomegaly Palpation: soft and no hepatosplenomegaly Extremity Common normals: no clubbing, cyanosis or edema Neuro Common normals: oriented x3, moves all extremities and no focal motor deficits Psych Common normals: mental status grossly normal, denies hallucinations, denies homicidal ideation and denies suicidal ideation DS: Data Data Completed and Pending Labs on day of discharge: Labs from last 24 hours 09/09/24 05:01 WBC 11.7 H RBC 4.43 Hgb 14.3 Hct 40.9 MCV 92.3 MCH 32.3 MCHC 35.0 RDW 13.0 Plt Count 220 MPV 10.4 Neut % (Auto) 67.9 Lymph % (Auto) 20.9 [place] % (Auto) 9.4 Eos % (Auto) 1.1 Baso % (Auto) 0.4 Neut # (Auto) 8.0 H Lymph # (Auto) 2.5 [place] # (Auto) 1.1 H Eos # (Auto) 0.1 Baso # (Auto) 0.1 Abs Immat Gran (auto) 0.04 H Imm/Tot Granulo (auto) 0.3 Sodium 142 Potassium 3.2 L Chloride 108 H Carbon Dioxide 25.6 Anion Gap 11.6 BUN 17.0 Creatinine 0.97 Est GFR ( Amer) >60 Est GFR (Non-Af Amer) 57 L BUN/Creatinine Ratio 17.5 Glucose 94 Calcium 8.1 L Total Bilirubin 0.9 AST 35 ALT 27 Alkaline Phosphatase 49 Total Protein 6.1 L Albumin 3.2 L Globulin 2.9 Albumin/Globulin Ratio 1.1 Preliminary micro results at discharge 09/07/24 10:32 Blood Culture Result 2 - Preliminary Blood - Right Forearm NO GROWTH AT 36-48 HOURS. FINAL TO FOLLOW. 09/07/24 10:18 Blood Culture Result 1 - Preliminary Blood - Right Forearm NO GROWTH AT 36-48 HOURS. FINAL TO FOLLOW. Discharge Plan Discharge Disposition: Home, Self-Care Condition: Serious Discharge Medications: New ciprofloxacin HCl 500 mg tablet 500 mg PO Q12H Qty: 14 0RF metronidazole 500 mg tablet 500 mg PO Q8H 7 Days Qty: 21 0RF ondansetron 4 mg tablet,disintegrating 4 mg PO Q6H PRN (Reason: nausea and vomiting) Qty: 10 0RF Continued atorvastatin 40 mg tablet 40 mg PO DAILY amlodipine 5 mg tablet 5 mg PO DAILY hydrochlorothiazide 25 mg tablet 25 mg PO DAILY albuterol sulfate 90 mcg/actuation HFA aerosol inhaler 2 puff INHALATION Q6H PRN (Reason: shortness of breath or wheezing) escitalopram oxalate 20 mg tablet 20 mg PO DAILY bupropion HCl 150 mg tablet extended release 24 hr 150 mg PO DAILY solifenacin 5 mg tablet 5 mg PO DAILY fluticasone propionate 50 mcg/actuation spray,suspension 1 spray INTRANASAL BID famotidine [Zantac-360 (famotidine)] 20 mg tablet 20 mg PO DAILY Discontinued metoprolol succinate 25 mg tablet extended release 24 hr 25 mg PO DAILY Activity: increase activity as tolerated Diet: advance to your usual diet Print Language: Jordanian Forms: Portal Instructions Follow Up Appointments: Adry Omer NP, ., 2024 at 1:00pm [phone]
--- NOTE | 2024-09-09 11:44 | SWNOTE1 ---
SW looked over therapy note and pt is independent, no anticipated discharge needs at this time.
--- NOTE | 2024-09-09 12:17 | CM.NOTE ---
Medicare Outpatient Observation Notice discussed with pt, pt verbalizes understanding and signs paper. Original given to pt and copy placed on pt's chart.
--- NOTE | 2024-09-10 15:08 | CM.DCFOLLOWU ---
1st attempt 09/10/24, no answer
[2024-09-12 14:08] LABS: Rotavirus Ag, EIA Negative (Negative)
--- NOTE | 2024-09-13 15:23 | CM.DCFOLLOWU ---
Person spoke with:pt's grand daughter How are you feeling? She did vomit this morning and still has diarrhea, but did have follow up with PCP How is your pain? nauseous Did you understand your discharge instructions? yes Do you have any questions about your discharge instructions?no Were you given any prescriptions at discharge? yes Were you able to get your prescriptions filled?yes Do you understand how to take your medications as ordered? yes Do you have any questions about your follow up appointment and do you plan to keep your follow up appointment? no questions, had follow up yesterday Is there anything else that you would like to discuss?no Questions/Comments/Concerns/Other:none
== END 2024-09-09 14:07 | disposition home or self-care (01) | DRG 872 ==
LOC: ER 10:46 → ICU 12:12
PROVIDERS: Admitting Provider Family Medicine; Emergency Provider Emergency Medicine; PCP Nurse Practitioner Family; Visit Provider Internal Medicine
DX: A41.9 Sepsis, unspecified organism (principal); K57.20 Diverticulitis of large intestine with perforation and abscess without bleeding; E87.4 Mixed disorder of acid-base balance; E87.20 Acidosis, unspecified; E87.3 Alkalosis; G45.9 Transient cerebral ischemic attack, unspecified; E87.1 Hypo-osmolality and hyponatremia; R65.20 Severe sepsis without septic shock; E78.00 Pure hypercholesterolemia, unspecified; E80.6 Other disorders of bilirubin metabolism; E83.52 Hypercalcemia; E86.0 Dehydration; F32.A Depression, unspecified; G47.30 Sleep apnea, unspecified; I10 Essential (primary) hypertension; J44.9 Chronic obstructive pulmonary disease, unspecified; K52.9 Noninfective gastroenteritis and colitis, unspecified; N28.1 Cyst of kidney, acquired; R00.1 Bradycardia, unspecified; R07.89 Other chest pain; R68.0 Hypothermia, not associated with low environmental temperature; R73.9 Hyperglycemia, unspecified; Z79.899 Other long term (current) drug therapy
CPT/HCPCS: 36415; 36600; 70450; 71275; 74174; 80053; 81001; 82800; 82805; 82948; 83605; 83690; 83735; 83880; 84436; 84443; 84484; 85025; 85610; 87040; 87045; 87046; 87086; 87425; 87427; 87493; 87804; 87811; 93005; 94667; 94668; 94761; 96361; 96365; 96375; 97165; 99285; G0328; J0744; J1836; J1885; J2405; J2543; J2765; J3010; Q9967

== ENCOUNTER 2024-10-02 13:05 | Outpatient (OUT) | payer MEDICARE, SELFPAY ==
--- NOTE | 2024-10-02 13:00 | CA_ITS ---
Patient Name: RUBA PARADA MR#: [id number] : 1955 Exam Date: 10/02/2024 Ordering Doctor: DR LIVIER GARCIA M.D. ECHOCARDIOGRAM REPORT PROCEDURE: CA ECHO DOPPLER COMPLETE INDICATIONS: Dyspnea on exertion COMPARISON: None. DESCRIPTION: COMPLETE ECHOCARDIOGRAM Real-time transthoracic echocardiography with 2D, M-mode, spectral and color flow Doppler performed. QUALITY: Technical quality was good. LEFT VENTRICLE: Normal chamber size. Proximal septal hypertrophy (sigmoid septum). Normal systolic function. LV EF: Normal left ventricular ejection fraction, (55-60%). DIASTOLIC: Diastolic function is indeterminate. ATRIAL SEPTUM: Hypermobile interatrial septum. Visually appears intact. LEFT ATRIUM: Mild dilatation. RIGHT ATRIUM: Normal chamber size. RIGHT VENTRICLE: Normal chamber size. Normal right ventricular systolic function. TRICUSPID VALVE: Normal mobility and thickness. No stenosis with trivial regurgitation. No evidence of pulmonary hypertension. RVSP 31 mmHg MITRAL VALVE: Normal mobility and thickness. No evidence of mitral valve stenosis. There is no mitral annular calcification. Trivial mitral regurgitation. AORTIC VALVE: Normal trileaflet appearance. Mildly calcified aortic valve. Normal leaflet mobility. No evidence of aortic valve stenosis. Mild aortic regurgitation. AORTIC ROOT: Normal diameter and appearance. PULMONIC VALVE: Normal thickness and mobility. No stenosis. PERICARDIUM: Trivial pericardial effusion. IVC: Collapses with inspirations. IVC is normal in size. PLEURA: CONCLUSION: 1. Normal ventricular size and systolic function. LVEF is estimated at 55 to 60%. 2. Mild aortic valve regurgitation. 3. Mildly dilated left atrium. 4. Normal right-sided pressures. 5. Trivial pericardial effusion. Adult Echocardiography Procedure Report Left Ventricle LVEDD (3.7 - 5.6 cm): 4.49 cm LVESD (2.2 - 4.0 cm): 2.89 cm LVIVS thickness (0.6 - 1.2 cm): 1.17 cm LVPW thickness (0.5 - 1.0 cm): 0.86 cm e': 0.05 m/s E - e': 6.91 LVOT Max Gradient: 1.71 mm[Hg] LVOT Area (cm2): 0.65 m/s Peak Velocity (LVOT): 0.65 m/s Mean Velocity (LVOT): 0.43 m/s LVOT Diameter 1.87 cm Left Atrium LA Volume Index (2D A2C): 36.73 ml/m2 Left Atrium Systolic Dimension: 3.85 cm Mitral Valve MV E to A Ratio: 0.44 Mitral Valve A-Wave Peak Velocity: 0.80 m/s Mitral Valve E-Wave Peak Velocity: 0.35 m/s Right Ventricle Aorta AO Root Diam: 3.30 cm Ascending Ao Diam: 3.36 cm Aortic Valve AoV Area (Peak Yuri): 1.27 cm2, 1.27 cm2 AoV Area (VTI): 1.98 cm2, 1.98 cm2 Peak Velocity(Antegrade Flow): 1.41 m/s Peak Gradient(Antegrade Flow): 7.91 mm[Hg] Mean Velocity(Antegrade Flow): 0.76 m/s Mean Gradient(Antegrade Flow): 2.98 mm[Hg] Velocity Time Integral: 22.79 cm Tricuspid Valve Peak Velocity (Regurgitant Flow): 2.67 m/s Pulmonic Valve Mean Gradient: 2.12 mm[Hg] Mean Velocity: 0.67 m/s Peak Velocity: 0.98 m/s Peak Gradient: 3.86 mm[Hg] Right Atrium Right Atrium Systolic Pressure: 47.65 ml, 47.65 ml Dictated by: Delgado Fregoso M.D. on 10/02/2024 at 20:13 Approved by: Delgado Fregoso M.D. on 10/02/2024 at 20:16
[2024-10-02 14:00] LABS: Basophils Absolute Auto 0.1 10^3/uL (0.0-0.1); Basophils Percent Auto 0.3 % (0.2-2.0); Eosinophils Percent Auto 0.1 % (0.9-7.0); Hematocrit 45.3 % (36.0-48.0); Hemoglobin 15.5 g/dL (12.0-16.0); Immature Granulocytes Abs Auto 0.07 10^3/uL (0.00-0.03); Immature Granulocytes Pct Auto 0.4 % (0.0-0.5); Lymphocytes Absolute Auto 1.5 10^3/uL (1.2-3.8); Lymphocytes Percent Auto 8.1 % (20.5-60.0); Mean Corpuscular HGB Conc 34.2 g/dL (29.9-35.2); Mean Corpuscular Hemoglobin 31.4 pg (26.7-34.0); Mean Corpuscular Volume 91.7 fL (81.0-99.0); Mean Platelet Volume 9.9 fL (9.5-13.5); Monocytes Absolute Auto 0.8 10^3/uL (0.3-0.8); Neutrophils Absolute Auto 16.1 10^3/uL (1.4-6.5); Neutrophils Percent Auto 87.1 % (43.0-75.0); Platelet Count 325 10^3/uL (150-450); Red Blood Count 4.94 10^6/uL (4.20-5.40); Red Cell Distribution Width 12.5 % (11.0-15.0); White Blood Count 18.5 10^3/uL (4.0-11.0)
== END 2024-10-02 13:06 | disposition home or self-care (01) ==
LOC: CARD 13:05
PROVIDERS: PCP Nurse Practitioner Family; Visit Provider Internal Medicine Interventional Cardiology
DX: R07.89 Other chest pain (principal); R06.02 Shortness of breath
CPT/HCPCS: 36415; 85025; 93306

== ENCOUNTER 2024-10-11 12:56 | Outpatient (OUT) | payer MEDICARE, SELFPAY ==
--- OUTSIDE RECORDS SUMMARY | 2024-10-11 13:16 | XMS_ITS | CCD ---
Author Organization [facility] Care Team Providers Care Senior Mechanical Technician Name Role Phone LIVIER GARCIA Attending Unavailable Medications Current Medications Medication Drug Class(es) Dates Sig (Normalized) Sig (Original) Albuterol Sulfate 90 mcg/actuation HFA aerosol inhaler (2 sources) Start: 07-25-20 take 1 puff(s) by inhalation four times daily Albuterol Sulfate 90 mcg/actuation HFA aerosol inhaler Active 2 PUFF INHALATION Four times daily 6.7 July 25, 2024 11:50am amLODIPine 5 mg oral tablet (4 sources) Dihydropyridine Calcium Channel Jamey Start: 07-25-20 End: 07-25-20 take 1 tablet by mouth once daily Amlodipine 5 mg tablet Active 5 MG PO Daily July 25, 2024 11:50am atorvastatin 40 mg oral tablet (4 sources) HMG-CoA Reductase Inhibitor Start: 07-25-20 End: 07-25-20 take 1 tablet by mouth once daily Atorvastatin 40 mg tablet Active 40 MG PO Daily July 25, 2024 11:51am 24 hr buPROPion hydrochloride 150 mg extended release oral tablet (4 sources) Aminoketone Start: 07-25-20 End: 07-25-20 take 1 tablet by mouth once daily in the morning Bupropion Hcl 150 mg tablet extended release 24 hr Active 150 MG PO Every morning July 25, 2024 11:51am escitalopram 20 mg oral tablet (4 sources) Serotonin Reuptake Inhibitor Start: 07-25-20 End: 07-25-20 take 1 tablet by mouth once daily Escitalopram Oxalate 20 mg tablet Active 20 MG PO Daily July 25, 2024 11:52am fluticasone propionate 0.05 mg/actuat metered dose nasal spray (2 sources) Corticosteroid Start: 07-25-20 take 1 spray(s) nasal route twice daily Fluticasone Propionate (Flonase Allergy Relief) 50 mcg/actuation spray,suspension Active 1 SPRAY INTRANASAL Twice daily July 25, 2024 12:00am administer into each nostril hydroCHLOROthiazide 25 mg oral tablet (4 sources) Thiazide Diuretic Start: 07-25-20 End: 07-25-20 take 1 tablet by mouth once daily Hydrochlorothiazide 25 mg tablet Active 25 MG PO Daily July 25, 2024 11:52am meclizine hydrochloride 25 mg oral tablet (1 source) Antiemetic Start: 09-12-19 take 1 tablet by mouth three times daily as needed for dizziness Meclizine 25 mg tablet Active 25 MG PO Three times daily as needed for dizziness 19 06September 12, 2024 12:00am 24 hr metoprolol succinate 25 mg extended release oral tablet (4 sources) beta-Adrenergic Jamey Start: 07-25-20 End: 07-25-20 take 1 tablet by mouth once daily Metoprolol Succinate 25 mg tablet extended release 24 hr Active 25 MG PO Daily July 25, 2024 11:54am solifenacin succinate 5 mg oral tablet (4 sources) Cholinergic Muscarinic Antagonist Start: 07-25-20 End: 07-25-20 take 1 tablet by mouth once daily Solifenacin 5 mg tablet Active 5 MG PO Daily July 25, 2024 11:53am Completed/Discontinued Medications Medication Drug Class(es) Dates Sig (Normalized) Sig (Original) [id number] 200 actuat albuterol 0.09 mg/actuat metered dose inhaler (2 sources) beta2-Adrenergic Agonist Start: End: 4 take 1 puff(s) by inhalation four times daily Albuterol Sulfate 90 mcg/actuation HFA aerosol inhaler Discontinued 2 PUFF INHALATION Four times daily July 25, 2024 12:00am July 25, 2024 11:55am methylPREDNISolone 4 mg oral tablet (2 sources) Corticosteroid Start: 5 End: 5 Methylprednisolone 4 mg tablet Discontinued 4 MG PO as directed 08 26August 28, 2024 12:00am September 12, 2024 1:28pm Problems Problem Classification Problem Date Documented Date Episodic/Chronic Chronic obstructive pulmonary disease and bronchiectasis (4 sources) Chronic obstructive lung disease; Translations: [Chronic obstructive pulmonary disease, unspecified] 07-25-2024 Chronic Conditions associated with dizziness or vertigo (2 sources) Vertigo; Translations: [Dizziness and giddiness] 09-12-2024 Episodic Coronary atherosclerosis and other heart disease (4 sources) Unstable angina; Translations: [Atherosclerotic heart disease of [place] coronary artery without angina pectoris] Onset: Chronic Disorders of lipid metabolism (4 sources) Hypercholesterolemia; Translations: [Pure hypercholesterolemia, unspecified] 07-25-2024 Chronic Essential hypertension (4 sources) Hypertensive disorder; Translations: [Essential (primary) hypertension] 07-25-2024 Chronic Mood disorders (4 sources) Depressive disorder; Translations: [Depression] 07-25-2024 Chronic Nonspecific chest pain (4 sources) Chest pain; Translations: [Chest pain, unspecified] Onset: 09-12-2024 Episodic Osteoarthritis (6 sources) Primary coxarthrosis, bilateral; 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] 08-27-2024 Chronic Other aftercare (1 source) Post-discharge follow-up; Translations: [Encounter for follow-up examination after completed treatment for conditions other than malignant neoplasm] 09-12-2024 Episodic Other aftercare (1 source) Encounter for follow-up examination after completed treatment for conditions other than malignant neoplasm; Translations: [Other follow-up examination] 09-12-2024 Episodic Other diseases of bladder and urethra (2 sources) Overactive bladder; Translations: [Overactive bladder] 07-25-2024 Chronic Other diseases of bladder and urethra (2 sources) Overactive bladder; Translations: [Hypertonicity of bladder] 07-25-2024 Chronic Other injuries and conditions due to external causes (2 sources) History of fall; Translations: [History of falling] 07-25-2024 Episodic Other injuries and conditions due to external causes (2 sources) History of falling; Translations: [History of fall] 07-25-2024 Episodic Other lower respiratory disease (2 sources) Shortness of breath; Translations: [Shortness of breath] Onset: Episodic Other non-traumatic joint disorders (2 sources) Hip pain; Translations: [Pain in right hip] 07-25-2024 Episodic Other non-traumatic joint disorders (2 sources) Pain in right hip; Translations: [Pain in joint, pelvic region and thigh] 07-25-2024 Episodic Other screening for suspected conditions (not mental disorders or infectious disease) (2 sources) Abnormal electrocardiogram [ECG] [EKG]; Translations: [Abnormal electrocardiogram (ECG) (EKG)] Onset: Episodic Otitis media and related conditions (4 sources) Dysfunction of eustachian tube; Translations: [Unspecified Eustachian tube disorder, unspecified ear] 07-25-2024 Episodic Spondylosis; intervertebral disc disorders; other back problems (4 sources) Disorder of right sciatic nerve; Translations: [Sciatica, right side] 08-28-2024 Episodic Results Test Name Value Interpretation Reference Range Facility Office Visiton 09-25-2024 Follow-up visit [id number] Malia Parada 1955 F Date Provider Department Center 09/25/2024 Tash-LIVIER GARCIA [facility] Family History Problem Relation Age of Onset Coronary artery disease Mother Other Mother Other Mother Family Status - Relation Status Age at Mother Level of Service:50376 MT OFFICE/OUTPATIENT [facility] 60 MINUTES Normal [facility] Basophils Auto (Bld) [#/Vol] on 09-09-2024 Basophils (Bld) [#/Vol] Automated basophil count 0.0-0.1 [facility] Basophils/100 WBC Auto (Bld) on 09-09-2024 Basophils/100 WBC (Bld) Automated basophil % 0.2-2.0 [facility] Eosinophils/100 WBC Auto (Bl d)on 09-09-2024 Eosinophils/100 WBC (Bld) Automated eosinophil % 0.9-7.0 [facility] Erythrocyte distribution wid th Auto (RBC) [Ratio]on 09-09-2024 Erythrocyte distribution width (RBC) [Ratio] Erythrocyte distribution width [Ratio] by Automated count 11.0-15.0 [facility] Estimated glomerular filtrat ion rate (GFR) non- Americanon 09-09-2024 GFR/1.73 sq M.predicted among non-blacks MDRD (S/P/Bld) [Vol rate/Area] Estimated glomerular filtration rate (GFR) non- Low >=60 mL/min/1.73m 2 [facility] Globulin Calc (S) [Mass/Vol] on 09-09-2024 Globulin (S) [Mass/Vol] Serum globulin measurement by calculation (mass/volume) [facility] Hematocrit Auto (Bld) [Volum e fraction]on 09-09-2024 Hematocrit (Bld) [Volume fraction] Hematocrit [Volume Fraction] of Blood by Automated count 36.0-48.0 [facility] Hemoglobin [Mass/volume] in Bloodon 09-09-2024 Hemoglobin (Bld) [Mass/Vol] Hemoglobin [Mass/volume] in Blood 12.0-16.0 [facility] Laboratory - Chemistry and C hemistry - challengeon 09-09-2024 Albumin [Mass/Vol] 3.2 g/dL Low 3.4-5.0 [facility] ALP [Catalytic activity/Vol] 49 U/L 46-116 [facility] ALT [Catalytic activity/Vol] 27 U/L 14-59 [facility] AST [Catalytic activity/Vol] 35 U/L 15-37 [facility] Bilirubin [Mass/Vol] 0.9 mg/dL 0.2-1.0 [facility] Calcium [Mass/Vol] 8.1 mg/dL Low 8.5-10.1 [facility] Chloride [Moles/Vol] 108 mmol/L High 98-107 [facility] CO2 [Moles/Vol] 25.6 mmol/L 21.0-32.0 [facility] Creatinine [Mass/Vol] 0.97 mg/dL 0.55-1.02 [facility] GFR/1.73 sq M.predicted MDRD (S/P/Bld) [Vol rate/Area] mL/min/{1.73_m2} >=60 mL/min/1.73m 2 [facility] Glucose [Mass/Vol] 94 mg/dL 74-106 [facility] Potassium [Moles/Vol] 3.2 mmol/L Low 3.5-5.1 [facility] Protein [Mass/Vol] 6.1 g/dL Low 6.4-8.2 [facility] Sodium [Moles/Vol] 142 mmol/L 136-145 [facility] Urea nitrogen [Mass/Vol] 17.0 mg/dL 7.0-18.0 [facility] Urea nitrogen/Creatinine [Mass ratio] 17.5 mg/mg [facility] Laboratory - Hematology and Cell countson 09-09-2024 Immature granulocytes/100 WBC (Bld) 0.3 % 0.0-0.5 [facility] Leukocytes [#/volume] correc lindsay for nucleated erythrocytes in Blood by Automated counon 09-09-2024 WBC corrected for nucl RBC Auto (Bld) [#/Vol] Leukocytes [#/volume] corrected for nucleated erythrocytes in Blood by Automated coun High 4.0-11.0 [facility] Lymphocytes Auto (Bld) [#/Vo l]on 09-09-2024 Lymphocytes (Bld) [#/Vol] Lymphocytes [#/volume] in Blood by Automated count 1.2-3.8 [facility] Lymphocytes/100 WBC Auto (Bl d)on 09-09-2024 Lymphocytes/100 WBC (Bld) Lymphocytes/100 leukocytes in Blood by Automated count 20.5-60.0 [facility] MCH Auto (RBC) [Entitic mass ]on 09-09-2024 MCH (RBC) [Entitic mass] MCH [Entitic mass] by Automated count 26.7-34.0 [facility] MCHC Auto (RBC) [Mass/Vol]on 09-09-2024 MCHC (RBC) [Mass/Vol] MCHC [Mass/volume] by Automated count 29.9-35.2 [facility] MCV Auto (RBC) [Entitic vol] on 09-09-2024 MCV (RBC) [Entitic vol] MCV [Entitic volume] by Automated count 81.0-99.0 [facility] Monocytes Auto (Bld) [#/Vol] on 09-09-2024 Monocytes (Bld) [#/Vol] Automated blood monocyte count High 0.3-0.8 [facility] Monocytes/100 WBC Auto (Bld) on 09-09-2024 Monocytes/100 WBC (Bld) Automated monocyte % 1.7-12.0 [facility] Neutrophils Auto (Bld) [#/Vo l]on 09-09-2024 Neutrophils (Bld) [#/Vol] Neutrophils [#/volume] in Blood by Automated count High 1.4-6.5 [facility] Neutrophils/100 WBC Auto (Bl d)on 09-09-2024 Neutrophils/100 WBC (Bld) Automated neutrophil % 43.0-75.0 [facility] No Panel Informationon 09-09 Eosinophils # (Auto) 0.1 10 3/uL 0.0-0.7 [facility] Immature Granulocyte # (Auto) 0.04 10 3/uL High 0.00-0.03 [facility] Platelet mean volume Auto (B ld) [Entitic vol]on 09-09-2024 Platelet mean volume (Bld) [Entitic vol] Platelet mean volume [Entitic volume] in Blood by Automated count 9.5-13.5 [facility] Platelets Auto (Bld) [#/Vol] on 09-09-2024 Platelets (Bld) [#/Vol] Platelets [#/volume] in Blood by Automated count 150-450 [facility] RBC Auto (Bld) [#/Vol]on RBC (Bld) [#/Vol] Erythrocytes [#/volume] in Blood by Automated count 4.20-5.40 [facility] Serum or plasma albumin/glob ulin mass ratioon 09-09-2024 Albumin/Globulin [Mass ratio] Serum or plasma albumin/globulin mass ratio [facility] Serum or plasma anion gap de terminationon 09-09-2024 Anion gap [Moles/Vol] Serum or plasma an ion gap determination [facility] Basophils Auto (Bld) [#/Vol] on 09-08-2024 Basophils (Bld) [#/Vol] Automated basophil count 0.0-0.1 [facility] Basophils/100 WBC Auto (Bld) on 09-08-2024 Basophils/100 WBC (Bld) Automated basophil % Low 0.2-2.0 [facility] Eosinophils/100 WBC Auto (Bl d)on 09-08-2024 Eosinophils/100 WBC (Bld) Automated eosinophil % Low 0.9-7.0 [facility] Erythrocyte distribution wid th Auto (RBC) [Ratio]on 09-08-2024 Erythrocyte distribution width (RBC) [Ratio] Erythrocyte distribution width [Ratio] by Automated count 11.0-15.0 [facility] Estimated glomerular filtrat ion rate (GFR) non- Americanon 09-08-2024 GFR/1.73 sq M.predicted among non-blacks MDRD (S/P/Bld) [Vol rate/Area] Estimated glomerular filtration rate (GFR) non- Low >=60 mL/min/1.73m 2 [facility] Globulin Calc (S) [Mass/Vol] on 09-08-2024 Globulin (S) [Mass/Vol] Serum globulin measurement by calculation (mass/volume) [facility] Hematocrit Auto (Bld) [Volum e fraction]on 09-08-2024 Hematocrit (Bld) [Volume fraction] Hematocrit [Volume Fraction] of Blood by Automated count 36.0-48.0 [facility] Hemoglobin [Mass/volume] in Bloodon 09-08-2024 Hemoglobin (Bld) [Mass/Vol] Hemoglobin [Mass/volume] in Blood 12.0-16.0 [facility] Laboratory - Chemistry and C hemistry - challengeon 09-08-2024 Albumin [Mass/Vol] 3.4 g/dL 3.4-5.0 [facility] ALP [Catalytic activity/Vol] 63 U/L 46-116 [facility] ALT [Catalytic activity/Vol] 28 U/L 14-59 [facility] AST [Catalytic activity/Vol] 42 U/L High 15-37 [facility] Bilirubin [Mass/Vol] 1.2 mg/dL High 0.2-1.0 [facility] Calcium [Mass/Vol] 8.6 mg/dL 8.5-10.1 [facility] Chloride [Moles/Vol] 98 mmol/L 98-107 [facility] CO2 [Moles/Vol] 24.3 mmol/L 21.0-32.0 [facility] Creatinine [Mass/Vol] 0.97 mg/dL 0.55-1.02 [facility] GFR/1.73 sq M.predicted MDRD (S/P/Bld) [Vol rate/Area] mL/min/{1.73_m2} >=60 mL/min/1.73m 2 [facility] Glucose [Mass/Vol] 109 mg/dL High 74-106 [facility] Natriuretic peptide B (Bld) [Mass/Vol] 991.0 pg/mL High <=900.0 [facility] Potassium [Moles/Vol] 4.6 mmol/L 3.5-5.1 [facility] Protein [Mass/Vol] 6.9 g/dL 6.4-8.2 [facility] Sodium [Moles/Vol] 133 mmol/L Low 136-145 [facility] Urea nitrogen [Mass/Vol] 19.0 mg/dL High 7.0-18.0 [facility] Urea nitrogen/Creatinine [Mass ratio] 19.6 mg/mg [facility] Laboratory - Hematology and Cell countson 09-08-2024 Immature granulocytes/100 WBC (Bld) 0.5 % 0.0-0.5 [facility] Leukocytes [#/volume] correc lindsay for nucleated erythrocytes in Blood by Automated counon 09-08-2024 WBC corrected for nucl RBC Auto (Bld) [#/Vol] Leukocytes [#/volume] corrected for nucleated erythrocytes in Blood by Automated coun High 4.0-11.0 [facility] Lymphocytes Auto (Bld) [#/Vo l]on 09-08-2024 Lymphocytes (Bld) [#/Vol] Lymphocytes [#/volume] in Blood by Automated count 1.2-3.8 [facility] Lymphocytes/100 WBC Auto (Bl d)on 09-08-2024 Lymphocytes/100 WBC (Bld) Lymphocytes/100 leukocytes in Blood by Automated count Low 20.5-60.0 [facility] MCH Auto (RBC) [Entitic mass ]on 09-08-2024 MCH (RBC) [Entitic mass] MCH [Entitic mass] by Automated count 26.7-34.0 [facility] MCHC Auto (RBC) [Mass/Vol]on 09-08-2024 MCHC (RBC) [Mass/Vol] MCHC [Mass/volume] by Automated count 29.9-35.2 [facility] MCV Auto (RBC) [Entitic vol] on 09-08-2024 MCV (RBC) [Entitic vol] MCV [Entitic volume] by Automated count 81.0-99.0 [facility] Monocytes Auto (Bld) [#/Vol] on 09-08-2024 Monocytes (Bld) [#/Vol] Automated blood monocyte count High 0.3-0.8 [facility] Monocytes/100 WBC Auto (Bld) on 09-08-2024 Monocytes/100 WBC (Bld) Automated monocyte % 1.7-12.0 [facility] Neutrophils Auto (Bld) [#/Vo l]on 09-08-2024 Neutrophils (Bld) [#/Vol] Neutrophils [#/volume] in Blood by Automated count High 1.4-6.5 [facility] Neutrophils/100 WBC Auto (Bl d)on 09-08-2024 Neutrophils/100 WBC (Bld) Automated neutrophil % 43.0-75.0 [facility] No Panel Informationon 09-08 Eosinophils # (Auto) 0.1 10 3/uL 0.0-0.7 [facility] Immature Granulocyte # (Auto) 0.07 10 3/uL High 0.00-0.03 [facility] Venous Blood Partial Pressure CO2 38.6 mm[Hg] Low 40.0-52.0 [facility] Venous Blood pH 7.419 7.330-7.430 [facility] Platelet mean volume Auto (B ld) [Entitic vol]on 09-08-2024 Platelet mean volume (Bld) [Entitic vol] Platelet mean volume [Entitic volume] in Blood by Automated count 9.5-13.5 [facility] Platelets Auto (Bld) [#/Vol] on 09-08-2024 Platelets (Bld) [#/Vol] Platelets [#/volume] in Blood by Automated count 150-450 [facility] RBC Auto (Bld) [#/Vol]on RBC (Bld) [#/Vol] Erythrocytes [#/volume] in Blood by Automated count 4.20-5.40 [facility] Serum or plasma albumin/glob ulin mass ratioon 09-08-2024 Albumin/Globulin [Mass ratio] Serum or plasma albumin/globulin mass ratio [facility] Serum or plasma anion gap de terminationon 09-08-2024 Anion gap [Moles/Vol] Serum or plasma an ion gap determination [facility] Basophils Auto (Bld) [#/Vol] on 09-07-2024 Basophils (Bld) [#/Vol] Automated basophil count 0.0-0.1 [facility] Basophils/100 WBC Auto (Bld) on 09-07-2024 Basophils/100 WBC (Bld) Automated basophil % 0.2-2.0 [facility] Eosinophils/100 WBC Auto (Bl d)on 09-07-2024 Eosinophils/100 WBC (Bld) Automated eosinophil % Low 0.9-7.0 [facility] Erythrocyte distribution wid th Auto (RBC) [Ratio]on 09-07-2024 Erythrocyte distribution width (RBC) [Ratio] Erythrocyte distribution width [Ratio] by Automated count 11.0-15.0 [facility] Estimated glomerular filtrat ion rate (GFR) non- Americanon 09-07-2024 GFR/1.73 sq M.predicted among non-blacks MDRD (S/P/Bld) [Vol rate/Area] Estimated glomerular filtration rate (GFR) non- Low >=60 mL/min/1.73m 2 [facility] Globulin Calc (S) [Mass/Vol] on 09-07-2024 Globulin (S) [Mass/Vol] Serum globulin measurement by calculation (mass/volume) [facility] Hematocrit Auto (Bld) [Volum e fraction]on 09-07-2024 Hematocrit (Bld) [Volume fraction] Hematocrit [Volume Fraction] of Blood by Automated count 36.0-48.0 [facility] Hemoglobin [Mass/volume] in Bloodon 09-07-2024 Hemoglobin (Bld) [Mass/Vol] Hemoglobin [Mass/volume] in Blood High 12.0-16.0 [facility] Hemoglobin.gastrointestinal [Presence] in Stoolon 09-07-2024 Hemoglobin.gastrointe stinal Ql (Stl) Hemoglobin.gastrointe stinal [Presence] in Stool Abnormal [facility] INR in Platelet poor plasma by Coagulation assayon 09-07-2024 INR Coag (PPP) [Relative time] INR in Platelet poor plasma by Coagulation assay [facility] Comment on above: DESIRED INR:2.0-3.0 CONDITIONS NOT LISTED BELOW2.5-3.5 FOR PROSTHETIC HEART VALVE REPLACEMENT2.5-3.5 RECURRENT THROMBOSIS Laboratory - Chemistry and C hemistry - challengeon 09-07-2024 Lactate [Moles/Vol] 2.1 mmol/L High 0.4-2.0 [facility] Comment on above: RESULTS CALLED TO IDALIA BEACH RN IN ICU BY Sandra Foster at 1617 Bilirubin Ql (U) Negative NEGATIVE [facility] Glucose (U) [Mass/Vol] Negative NEGATIVE [facility] Ketones Ql (U) 15 mg/dL Abnormal NEGATIVE [facility] pH (U) 7.5 [pH] 5.0-9.0 [facility] Specific gravity (U) [Rel density] 1.020 1.005-1.025 [facility] Urobilinogen Qn (U) 0.2 {Bakari'U}/dL 0.2-1.0 [facility] Lipase [Catalytic activity/Vol] 24.0 U/L 16.0-77.0 [facility] Magnesium [Mass/Vol] 1.9 mg/dL 1.8-2.4 [facility] T4 [Mass/Vol] 13.50 ug/dL 4.80-13.90 [facility] TSH Qn 2.449 m[IU]/L 0.358-3.740 [facility] HCO3 (Bld) [Moles/Vol] 17.0 mmol/L Low 22.0-26.0 [facility] Albumin [Mass/Vol] 4.0 g/dL 3.4-5.0 [facility] ALP [Catalytic activity/Vol] 66 U/L 46-116 [facility] ALT [Catalytic activity/Vol] 31 U/L 14-59 [facility] AST [Catalytic activity/Vol] 25 U/L 15-37 [facility] Bilirubin [Mass/Vol] 1.2 mg/dL High 0.2-1.0 [facility] Calcium [Mass/Vol] 9.3 mg/dL 8.5-10.1 [facility] Chloride [Moles/Vol] 102 mmol/L 98-107 [facility] CO2 [Moles/Vol] 23.8 mmol/L 21.0-32.0 [facility] Creatinine [Mass/Vol] 0.98 mg/dL 0.55-1.02 [facility] GFR/1.73 sq M.predicted MDRD (S/P/Bld) [Vol rate/Area] mL/min/{1.73_m2} >=60 mL/min/1.73m 2 [facility] Glucose [Mass/Vol] 181 mg/dL High 74-106 [facility] Potassium [Moles/Vol] 3.7 mmol/L 3.5-5.1 [facility] Protein [Mass/Vol] 7.3 g/dL 6.4-8.2 [facility] Sodium [Moles/Vol] 139 mmol/L 136-145 [facility] Urea nitrogen [Mass/Vol] 27.0 mg/dL High 7.0-18.0 [facility] Urea nitrogen/Creatinine [Mass ratio] 27.6 mg/mg [facility] Laboratory - Hematology and Cell countson 09-07-2024 Immature granulocytes/100 WBC (Bld) 0.6 % High 0.0-0.5 [facility] Laboratory - Microbiology an d Antimicrobial susceptibilityon 09-07-2024 SARS-CoV-2 (COVID-19) RNA TRISTAN+probe Ql (Unsp spec) Negative NEGATIVE [facility] Comment on above: This test has not be en FDA cleared or approved, but has beenauthorized by the FDA under an Emergency Use Authorization(EUA) for use by authorized laboratories certified underIA that meet the requirements to perform moderate or highcomplexity testing. This test has been authorized only forthe detection of proteins from SARS-CoV-2, not for any otherviruses or pathogens. The emergency use of this test isauthorized for the duration of the declaration thatcircumstances exist justifying the authorization ofemergency use of in vitro diagnostic tests for detectionand/or diagnosis of Covid-19 under section 564(b)(1) of theAct, 21 U.S.C. 360bbb-3(b)(1), unless the declaration isterminated or authorization is revoked sooner. Laboratory - Specimen inform ationon 09-07-2024 Appearance (U) CLEAR CLEAR [facility] Color (U) LT. YELLOW YELLOW [facility] Laboratory - Urinalysison Leukocyte esterase Test strip Ql (U) Negative NEGATIVE [facility] Mucus Ql (Urine sed) NONE SEEN NONE SEEN [facility] Nitrite Ql (U) Positive Abnormal NEGATIVE [facility] Protein Ql (U) 30 mg/dL Abnormal NEG/TRACE [facility] Leukocytes [#/volume] correc lindsay for nucleated erythrocytes in Blood by Automated counon 09-07-2024 WBC corrected for nucl RBC Auto (Bld) [#/Vol] Leukocytes [#/volume] corrected for nucleated erythrocytes in Blood by Automated coun High 4.0-11.0 [facility] Lymphocytes Auto (Bld) [#/Vo l]on 09-07-2024 Lymphocytes (Bld) [#/Vol] Lymphocytes [#/volume] in Blood by Automated count 1.2-3.8 [facility] Lymphocytes/100 WBC Auto (Bl d)on 09-07-2024 Lymphocytes/100 WBC (Bld) Lymphocytes/100 leukocytes in Blood by Automated count Low 20.5-60.0 [facility] MCH Auto (RBC) [Entitic mass ]on 09-07-2024 MCH (RBC) [Entitic mass] MCH [Entitic mass] by Automated count 26.7-34.0 [facility] MCHC Auto (RBC) [Mass/Vol]on 09-07-2024 MCHC (RBC) [Mass/Vol] MCHC [Mass/volume] by Automated count 29.9-35.2 [facility] MCV Auto (RBC) [Entitic vol] on 09-07-2024 MCV (RBC) [Entitic vol] MCV [Entitic volume] by Automated count 81.0-99.0 [facility] Monocytes Auto (Bld) [#/Vol] on 09-07-2024 Monocytes (Bld) [#/Vol] Automated blood monocyte count High 0.3-0.8 [facility] Monocytes/100 WBC Auto (Bld) on 09-07-2024 Monocytes/100 WBC (Bld) Automated monocyte % 1.7-12.0 [facility] Neutrophils Auto (Bld) [#/Vo l]on 09-07-2024 Neutrophils (Bld) [#/Vol] Neutrophils [#/volume] in Blood by Automated count High 1.4-6.5 [facility] Neutrophils/100 WBC Auto (Bl d)on 09-07-2024 Neutrophils/100 WBC (Bld) Automated neutrophil % High 43.0-75.0 [facility] No Panel Informationon 09-07 Troponin I High Sensitivity 14.0 pg/mL 4.0-51.3 [facility] Comment on above: CUT-OFF POINTS HAVE BEEN ESTABLISHED BASED ON THE FOURTHUNIVERSAL DEFINITION OF MYOCARDIAL INFARCTION. THE UPPERREFERENCE LIMIT (URL) OF TROPONIN, DEFINED THE 99THPERCENTILE OF cTnI DISTRIBUTION IN A REFERENCE POPULATION,HAS BEEN CONFIRMED THE DECISION THRESHOLD FOR MIDIAGNOSIS.99TH PERCENTILE = 51.4 PG/MLNOTE: HIGH-SENSITIVITY TROPONIN ASSAY IS NOT INTENDED TO BEUSED IN ISOLATION BUT SHOULD BE INTERPRETED IN CONJUNCTIONWITH OTHER DIAGNOSTIC AND CLINICAL INFORMATION. Urine Bacteria MODERATE #/HPF Abnormal NONE SEEN [facility] Urine Culture Reflexed ALREADY ORDERED [facility] Comment on above: CATH SPECIMEN Urine Occult Blood SMALL Abnormal NEGATIVE [facility] Urine RBC 0-2 #/HPF 0-2 [facility] Urine Squamous Epithelial Cells FEW #/LPF Abnormal NONE/RARE [facility] Urine WBC 5-10 #/HPF Abnormal NONE SEEN [facility] Venous Blood Partial Pressure CO2 22.1 mm[Hg] Low 40.0-52.0 [facility] Venous Blood pH 7.565 High 7.330-7.430 [facility] Clostridium difficile (PCR)(LAB) Negative [facility] Bedside Influenza Type A Antigen Negative [facility] Comment on above: Negative for Flu A p rotein antigen. Infection due to Flu Acannot be ruled out. Flu A antigen in the sample may bebelow the detection limit of the test. Bedside Influenza Type B Antigen Negative [facility] Comment on above: Negative for Flu B p rotein antigen. Infection due to Flu Bcannot be ruled out. Flu B antigen in the sample may bebelow the detection limit of the test. Christopher Test Positive POSITIVE [facility] Arterial Blood Base Excess -4.2 mmol/L Low <2.0-2.0 [facility] Arterial Blood Oxygen Saturation 98.4 % [facility] Arterial Blood Partial Pressure CO2 16.4 mm[Hg] Low 35.0-45.0 [facility] Arterial Blood Partial Pressure O2 117.0 mm[Hg] High 80.0-100.0 [facility] Arterial Blood pH 7.623 Critically high 7.350-7.450 F [facility] Comment on above: RESULTS CALLED TO DR Tanna RASHID AT 0854 Blood Gas Sample Site RIGHT RADIAL F [facility] Oxygen Delivery Device ROOM AIR [facility] Eosinophils # (Auto) 0.0 10 3/uL 0.0-0.7 [facility] Immature Granulocyte # (Auto) 0.10 10 3/uL High 0.00-0.03 [facility] Platelet mean volume Auto (B ld) [Entitic vol]on 09-07-2024 Platelet mean volume (Bld) [Entitic vol] Platelet mean volume [Entitic volume] in Blood by Automated count 9.5-13.5 [facility] Platelets Auto (Bld) [#/Vol] on 09-07-2024 Platelets (Bld) [#/Vol] Platelets [#/volume] in Blood by Automated count 150-450 [facility] Prothrombin time (PT)on 08-21 PT Coag (PPP) [Time] Prothrombin time (PT) 9.0- 11.6 [facility] RBC Auto (Bld) [#/Vol]on RBC (Bld) [#/Vol] Erythrocytes [#/volume] in Blood by Automated count 4.20-5.40 [facility] Serum or plasma albumin/glob ulin mass ratioon 09-07-2024 Albumin/Globulin [Mass ratio] Serum or plasma albumin/globulin mass ratio [facility] Serum or plasma anion gap de terminationon 09-07-2024 Anion gap [Moles/Vol] Serum or plasma an ion gap determination [facility] Vital Signs Date Time Vital Sign Value Performing Clinician Faci lity 09-12-2024 13:09-0500 Body height 162.56 cm [facility] 09-12-2024 13:09-0500 Body temperature 98.6 [degF] [facility] 09-12-2024 13:09-0500 Diastolic blood pressure 80 mm[Hg] [facility] 09-12-2024 13:09-0500 Heart rate 68 /min [facility] 09-12-2024 13:09-0500 SaO2% (BldA) [Mass fraction] 98 % [facility] 09-12-2024 13:09-0500 Systolic blood pressure 128 mm[Hg] [facility] 07-25-2024 11:21-0500 Body height 162.56 cm [facility] 07-25-2024 11:21-0500 Body mass index (BMI) [Ratio] 33.8 kg/m2 [facility] 07-25-2024 11:21-0500 Body weight 89.41 kg [facility] 07-25-2024 11:21-0500 Diastolic blood pressure 78 mm[Hg] [facility] 07-25-2024 11:21-0500 Heart rate 74 /min [facility] 07-25-2024 11:21-0500 SaO2% (BldA) [Mass fraction] 98 % [facility] 07-25-2024 11:21-0500 Systolic blood pressure 116 mm[Hg] [facility] Encounters Encounter Date Encounter Type Care Provider Facility Start: 09-25-2024 End: 09-25-2024 ambulatory [facility] Start: 09-12-2024 End: 09-12-2024 ambulatory [facility] Work Phone: Start: 09-12-2024 End: 09-12-2024 Patient encounter procedure [facility] Work Phone: Start: 09-09-2024 Non-patient / [facility] Work [facility] Start: 09-09-2024 Non-patient / Non-visit [facility] Work Phone: Start: 09-08-2024 Non-patient / Non-visit [facility] Work Phone: Start: 09-07-2024 Non-patient / Non-visit [facility] Work Phone: Start: 08-28-2024 End: 08-28-2024 ambulatory [facility] Work Phone: Start: 08-28-2024 End: 08-28-2024 Patient encounter procedure [facility] Work Phone: Start: 07-25-2024 End: 07-25-2024 Patient encounter procedure [facility] Work Phone: Start: 07-23-2024 Non-patient / Non-visit [facility] Work Phone: Plan of Treatment Date Care Activity Detail Author Start: 09-12-2024 Patient referral [facility] Work Phone: [facility]: XR Hip - right 2 Views [facility] Payers Date Payer Category Payer Medicare [id number] Medicare AAR Medicare Advantage [facility] [id number] Social History Date Type Detail Facility Start: [facility]24 [facility] Start: 08-28-2024 End: 09-12-2024 Sex Female (finding) [facility] Start: 1955 Sex Assigned At Female F [facility] Progress note 09-25-2024 Note Date & Type Note Facility 09-25-2024 Note [facility] Cardiology Clinic Note Chief Complaint: New patient here to establish care. Ref from Sophie Montanez CNP for chest pain. She was seen in [facility] ED last week for chest pain. Metoprolol was stopped upon discharged. Says she's always short of breath . Daughter says she wears her cpap even at rest. Has not had chest pain since discharge. Her mother had hx of CABG. She is a former smoker. HPI: Malia Parada is a 69 y.o. female Recently admitted to the [facility] with gastroenteritis, dehydration, chest pain, hypokalemia and alkalosis She is found to have diverticulitis without abscess. She was treated with IV antibiotics and sent home on Cipro floxacillin and Flagyl. She also complained of chest pain upon arrival; she was not worked up cardiac varela in the hospital and was recommended to be seen by cardiology as an outpatient for workup of ischemic heart disease. Her Toprol was discontinued because of bradycardia that was noted during admission. She does state that she has a longstanding history of vertigo. Past medical history: Incontinence, depression, vertigo, dyslipidemia, COPD, hypertension Past surgical history: Partial hysterectomy, cholecystectomy, facial surgery Social history: Former smoker, does not drink Update 09/25/2024: The patient is somewhat vague in her symptomatology. She had an episode of severe chest discomfort that led to her hospitalization recently. Apparently she was found to have diverticulitis and investigations were geared towards the gastrointestinal system. Notably, she has experienced progressively worsening exertional chest pressure and shortness of breath with any activities including playing with her grandchildren. She has no orthopnea, she denies paroxysmal tunnel dyspnea, she has no lower extremity edema. Cardiology ROS: Review of Systems Cardiovascular: Positive for dyspnea on exertion. Respiratory: Positive for shortness of breath. Neurological: Positive for dizziness and light-headedness. All other systems reviewed and are negative. Past Medical History She has no past medical history on file. Surgical History She has no past surgical history on file. Social History She has no history on file for tobacco use, alcohol use, and drug use. Family History No family history on file. Allergies Patient has no allergy information on record. Medications No current outpatient medications on file. Last Recorded Vitals BP 118/70 (BP Location: Right arm, Patient Position: Sitting) Pulse 93 Ht 1.626 m (5' 4 ) Wt 88 kg (194 lb) SpO2 95% BMI 33.30 kg/m??? Physical Examination: GENERAL: alert and oriented x3, well developed, in no acute distress. HEAD: atraumatic, normocephalic. EYES: ADRIANE, EOMI. NECK: trachea midline, no JVD present, no carotid bruits present. CARDIAC: S1, S2 present. RRR. No murmur, rubs, or gallops. RESPIRATORY: CTAB, no increased effort of breathing, no rales, rhonchi, or wheezing. ABDOMEN: soft, nontender, nondistended. EXTREMITIES: no lower extremity edema, peripheral pulses are 2+ bilaterally. No rash/skin discoloration present. NEURO: strength/sensation equal and symmetric in bilateral upper and lower extremities. PSYCH: appropriate mood, affect, and judgement. Investigations: 12-lead EKG 09/09/2024: Sinus rhythm, occasional premature ventricular contractions, low QRS voltage in chest leads, long QTc interval CT chest 09/07/2024: Cardiac: Prominent heart size. No pericardial effusion. Moderate coronary calcifications Chest wall: Ruptured right saline breast implant. Intact left breast implant Aorta/vascular: No aortic aneurysm or dissection. Moderate calcific atherosclerosis. Renal arteries: Single right renal artery, single left renal artery. Flow significant stenosis possible left renal artery estimated to be 60%. 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 I do not believe a stress test will be of sufficient accuracy to rule out significant coronary disease. Routine precath labs. Will schedule her for right heart catheterization and coronary angiography via a right internal jugular and left radial approach. A complete echocardiogram will be obtained. Given documented coronary and peripheral disease, I have asked her to start 81 mg of aspirin. She is to continue Lipitor 40 mg a day. We may modify her medical regimen after the cardiac catheterizatio (more content not included)... [facility] Evaluation note 07-25-2024 Note Date & [...] [id number] 10:49am Arthritis of right hip acute [facility] 2024 11:58am Right sided sciatica acute [place] 2024 11:58am [facility] Work Phone: Evaluation note 07-25-2024 Note Date & Type Note Facility 07-25-2024 Evaluation note Diagnosis Onset Date Resolution COPD (chronic obstructive pulmonary disease) acute July 25 10:49am Depression acute July 25, 2024 10:49am Eustachian tube dysfunction acute July 25 10:49am High cholesterol acute July 25, 2024 10:49am History of recent fall acute De c[facility]2023 10:49am Hypertension acute July 10:49am Overactive bladder acute [facility] 2023 10:49am Right hip pain acute July 252023 10:49am Arthritis of right hip acute [facility] 2024 11:58am Right sided sciatica acute [id number] 11:58am Chest pain acute September 12, 2024 1:03pm Hospital discharge follow-up acute September 12 1:03pm Vertigo acute September 12, 2024 1:03pm [facility] Work Phone: Hospital Discharge instructions Note Date & Type Note Facility Hospital Discharge instructions Ambulatory OrdersReferral to Cardiology Location: None Selected [facility] Work Phone: Chief Complaint and Reason for Visit Chief Complaint Admit Date CC Adult Risk Stratification July 9:48am Est Care July 25, 2024 1 0:49am CONSULT SOPHIE MONTANEZ RT HIP PIAN, WX August 28, 2024 [...] sided sciatica August 28, 2024 1 1:58am Chief Complaint Admit Date CC Adult Risk Stratification July 9:48am Est Care July 25, 2024 1 0:49am CONSULT SOPHIE MONTANEZ RT HIP PIAN, WX August 28, 2024 11:58am Amb Documentation September 09, 2024 1 0:02am [facility] hospital follow up September 12 1:03pm Reason for Visit Admit Date COPD (chronic [...] sided sciatica August 28, 2024 1 1:58am Chest pain September 12, 2024 1 :03pm Hospital discharge follow-up August 1:03pm Vertigo September 12, 2024 1 :03pm Advance Directives No Advanced Directives Records Found Advance Directive Response Recorded Date/ Time Advance Directives No June 1:52pm Summary Purpose Family History No Family History Records Found Additional Source Comments Care Teams (unrecognized sec tion and content) Team Status: Active Member Role Status Dates Sophie Montanez APRN [employer] Primary Care Provider Active Team Status: Active Member Role Status Dates SOFIA SalterC Primary Care Provider, Attending Provider Active Start: July 23, 2024 Team Status: Inactive Member Role Status Dates Sophie FernandezebenezerROBINA leonardN [employer]TER-C Primary Care Provider, Attending Provider Active Start: July 25, 2024 End: July 25, 2024 Team Status: Inactive Member Role Status Dates Sophie Fernandezchelsea ROBINAN [employer]-C Primary Care Provider Active Start: August 28, 2024 End: August 28, 2024 Dickson Triana DO Attending Provider Active S tart: August 28, 2024 End: August 28, 2024 Team Status: Active Member Role Status Dates Sophie Kan VAMP [employer]ER [employer] Primary Care Provider Active Start: August Brittney Rashid DO Attending Provider Active Sta rt: September 07, 2024 Team Status: Active Member Role Status Dates Sophie Kan [employer] Primary Care Provider Active Start: August Deni Sharif MD Attending Provider Active Sta rt: September 08, 2024 Team Status: Active Member Role Status Dates Sophie Kan [employer] Primary Care Provider Active Start: August Deni Sharif MD Attending Provider Active Sta rt: September 09, 2024 Team Status: Active Member Role Status Dates Sophie Kan [employer] Primary Care Provider Active Start: August Karina Simth CMA Attending Provider Active Start: September 09, 2024 Team Status: Inactive Member Role Status Dates Sophie FernandezSOFIA tran [employer] Primary Care Provider, Attending Provider Active Start: September 12, 2024 End: September 12, 2024 Goals (unrecognized section and content) Goals may be documented in a n alternate sectionGoals may be documented in an alternate section INFORMATION SOURCE (unrecogn ized section and content) DATE CREATED AUTHOR 09/27/2024 [facility] FOR RECORDS PERTAINING TO PATIENTS WHO ARE [...] BE BASED ON THE PRIMARY CLINICAL RECORDS. [facility] [employer] [facility]. provides no warranty or guarantee of the accuracy or completeness of information in this document.
[2024-10-11 13:28] LABS: Anion Gap 13.4; BUN Creatinine Ratio 19.3; Calcium 9.5 mg/dL (8.5-10.1); Chloride 101 mmol/L (98-107); Estimated GFR (African America >60 (>=60 mL/min/1.73m^2); Estimated GFR (Non-African Ame >60 (>=60 mL/min/1.73m^2); Glucose 105 mg/dL (74-106); Potassium 4.4 mmol/L (3.5-5.1); Sodium 139 mmol/L (136-145)
== END 2024-10-11 12:57 | disposition home or self-care (01) ==
LOC: LAB 12:57
PROVIDERS: PCP Nurse Practitioner Family; Visit Provider Internal Medicine Interventional Cardiology
DX: R06.02 Shortness of breath (principal)
CPT/HCPCS: 36415; 80048